=== PATIENT | female | born 1970 | race Caucasian/White ===

== ENCOUNTER 2021-03-22 14:10 | Outpatient (CLI) | payer OTHER, SELFPAY ==
--- NOTE | ~2021-03-22 | MM_ITS ---
EXAMINATION: MM screening jairon BI w jocelyne HISTORY: Screening mammogram TECHNIQUE: Craniocaudal and mediolateral oblique 3-D tomosynthesis images were obtained and synthetic 2-D images were generated. CAD analysis was submitted and interpreted. COMPARISON: No prior mammogram is available for comparison at this institution. BREAST PARENCHYMAL COMPOSITION: There are scattered areas of fibroglandular density. FINDINGS: There is no evidence of suspicious mass, calcification, or architectural distortion to sugg est malignancy in either breast. IMPRESSION: 1. No mammographic evidence of malignancy. 2. Recommend routine screening mammography in one year. BI-RADS Category 1: Negative Reviewed, dictated and finalized at location A. 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
== END 2021-03-22 14:11 | disposition home or self-care (01) ==
DX: Z12.31 Encounter for screening mammogram for malignant neoplasm of breast (principal)
CPT/HCPCS: 77063; 77067

== ENCOUNTER 2021-03-28 16:15 | Outpatient (CLI) | payer OTHER, SELFPAY ==
--- NOTE | ~2021-03-28 | XR_ITS ---
EXAMINATION: XR shoulder LT min 2V, XR shoulder RT min 2V DATE: 03/28/2021 16:49 INDICATION: Chronic bilateral shoulder pain. CCP antibody positive. TECHNIQUE: 1. AP internally and externally rotated, AP oblique externally rotated and transscapular Y views of t he left shoulder were obtained. 2. AP internally and externally rotated, AP oblique externally rotated and transscapular Y views of t he right shoulder were obtained. COMPARISON: None FINDINGS: Normal alignment at both shoulders. No fracture. Bilateral glenohumeral and acromioclavicular joint spaces are normal. No erosions. Soft tissues are unremarkable. Visualized portions of the lungs are c lear. Mild thoracic dextroscoliosis. IMPRESSION: Mild thoracic dextroscoliosis. Otherwise normal bilateral shoulder radiographs. Reviewed, dictated and finalized at location A. FIELD LABORER IMPRESSION: Mild thoracic dextroscoliosis. Otherwise normal bilateral shoulder radiographs.
--- NOTE | ~2021-03-28 | XR_ITS ---
EXAMINATION: HAND-WILFREDO ARTHRITIS 3+VIEWS DATE: 03/28/2021 16:49 INDICATION: Joint pain at the bilateral hands with positive CCP antibody TECHNIQUE: Posteroanterior, lateral, and oblique views of the left and of the right hands as well as a ballcatchers view of both hands were obtained. COMPARISON: None. FINDINGS: Left fifth digit mild mallet finger deformity along with slight radial subluxation and radial angulat ion of the distal interphalangeal joint. Relatively symmetric 3-4 mm ulnar minus variance at the bila teral wrists. Alignment is otherwise normal. No fractures. Normal joint spaces throughout the bilater al hands and wrists. No erosions to suggest an inflammatory arthritis. Soft tissues are unremarkable. IMPRESSION: 1. Mild likely post rheumatic deformity at the left fourth distal interphalangeal joint. Correlate wi th clinical history. 2. Bilateral 3-4 mm ulnar minus variance. 3. Joint spaces are normal with no erosions to suggest an inflammatory arthritis. Reviewed, dictated and finalized at location A. ATIONS AND MAINTENANCE TECHNICIAN IMPRESSION: 1. Mild likely post rheumatic deformity at the left fourth distal interphalange al joint. Correlate with clinical history. 2. Bilateral 3-4 mm ulnar minus variance. 3. Joint spaces are normal with no erosions to suggest an inflammatory arthriti s.
== END 2021-03-28 16:16 | disposition home or self-care (01) ==
LOC: ANHIMG 16:22
DX: R79.89 Other specified abnormal findings of blood chemistry (principal); G89.4 Chronic pain syndrome; M25.50 Pain in unspecified joint
CPT/HCPCS: 73030; 73130

== ENCOUNTER 2021-06-05 00:09 | Day surgery (SDC) | payer OTHER, SELFPAY ==
[2021-05-29 14:38] VITALS: BMI 33.8
[2021-06-05 12:47] VITALS: BP 149/81; PULSE 103; RESP 20; TEMP 35.6; O2SAT 94; BMI 34.2
[2021-06-05] MEDS: LACTATED RINGERS 1,000 ML 150 ML IV CONT (13:01)
--- NOTE | 2021-06-05 13:05 | WPDANESEPPF ---
Anes - Initial Pre Proc Eval Procedure: Operation Date: 06/05/21 14:00 Proposed Procedures p Screening Colonoscopy - Vasile Cota MD Date/Time: 06/05/21 13:05 Surgeon: Vasile Cota MD Pre Op Diagnosis: neoplasm screening Patient Data Age: 50 Gender: F Height: 1.78 m Weight: 108.2 kg Last Vital Signs Temp 35.6 C L 06/05/21 12:47 Pulse 103 H 06/05/21 12:47 Resp 20 06/05/21 12:47 BP 149/81 H 06/05/21 12:47 Pulse Ox 94 06/05/21 12:47 Allergies Allergy/AdvReac Type Severity Reaction Status Date / Time gabapentin Allergy Intermediate Itching Verified 06/05/21 12:46 Home Medications Medication Instructions Recorded Confirmed Type cholecalciferol (vitamin D3) 125 mcg PO DAILY 05/29/21 05/29/21 History clonazepam 0.5 mg PO DAILY 05/29/21 05/29/21 History dextroamphetamine-amphetamine 40 mg PO DAILY 05/29/21 05/29/21 History escitalopram oxalate 10 mg PO DAILY 05/29/21 05/29/21 History fluticasone propionate 50 mcg INTRANASAL DAILY 05/29/21 05/29/21 History leflunomide [Arava] 10 mg PO DAILY 05/29/21 05/29/21 History lisinopril-hydrochlorothiazide 1 tablet PO DAILY 05/29/21 05/29/21 History melatonin 10 mg PO DAILY 05/29/21 05/29/21 History methocarbamol 750 mg PO DAILY 05/29/21 05/29/21 History omeprazole 20 mg PO DAILY 05/29/21 05/29/21 History prazosin 1 mg PO HS 05/29/21 05/29/21 History ropinirole 0.5 mg PO HS 05/29/21 05/29/21 History topiramate 50 mg PO BID 05/29/21 05/29/21 History trazodone 50 mg PO DAILY 05/29/21 05/29/21 History Patient hx anesthesia problems: none Family hx anesthesia problems: none Results Review: All pre-operative results and documents have been reviewed as part of the pre-operative evaluation. [facility] Past Medical History Medical History (Updated 06/05/21 @ 13:06 by Jeovanny Lewis MD) Anxiety HTN (hypertension) PTSD (post-traumatic stress disorder) Rheumatoid arthritis Surgical History Surgical History (Updated 06/05/21 @ 13:06 by Jeovanny Lewis MD) History of removal of laparoscopic gastric banding device Hx of laparoscopic adjustable gastric banding Social History Social History Smoking status: Never smoker Alcohol intake: former Substance use: never Substance use type: marijuana Other substance usage details: medical marijuana rare use due to cost Living arrangements: with family Additional living arrangements comments: adult daughter lives with her Spiritual care concerns: No Anes - Eval Final PreProcedure Day of Procedure 06/05/21 13:05 Patient weight: obese Heart: regular rate and rhythm Lungs: clear to auscultation Airway: Mallampati scale class II Neurological: alert and oriented Last oral intake: >/= 8 hours ASA classification: III Emergent: no Anesthetic plan: proceed Anesthesia type and monitoring: general GIVS and standard monitoring Results Review: All pre-operative results and documents have been reviewed as part of the pre-operative evaluation. Informed Consent: The patient's anesthetic plan and its attendant risks and benefits were discussed with the patient/family/POA. Questions were solicited and answers provided to the satisfaction of the patient/family/POA.
--- NOTE | 2021-06-05 13:20 | PM.HPGS ---
History of Present Illness History of Present Illness Consent: Risks, benefits, and alternatives have been discussed and questions answered. Patient agrees to proceed with procedure. Chief complaint: neoplasm screening Narrative: Elizabeth Amezcua is a 50 year old female here for first screening colonoscopy, had diverticulitis few months ago. Review of Systems Constitutional: Constitutional: Denies headache(s) and Denies weakness Eyes: Eyes: Denies blurry vision ENT: Reports Normal hearing present, Denies headache(s) and Denies neck pain Cardiovascular: Cardiovascular: Denies chest pain and Denies dyspnea Respiratory: Respiratory: Denies dyspnea Gastrointestinal: Gastrointestinal: Reports no additional gastrointestinal complaints Genitourinary: Genitourinary: Denies dysuria Musculoskeletal: Musculoskeletal: Denies neck pain Integumentary/Breasts: Skin/Breast: Denies dry skin Neurologic: Reports Normal hearing present, Denies headache(s) and Denies weakness Psychiatric: Psychiatric: Denies anxiety Endocrine: Endocrine: Denies change in body appearance Hematologic/Lymphatic: Hematologic/Lymphatic: Denies easy bleeding Allergic/Immunologic: Allergic/Immunologic: Denies urticaria PMFSH Past Medical History Medical History (Updated 06/05/21 @ 13:20 by Vasile Cota MD) Anxiety Colon cancer screening HTN (hypertension) PTSD (post-traumatic stress disorder) Rheumatoid arthritis Surgical History Surgical History (Updated 06/05/21 @ 13:06 by Jeovanny Lewis MD) History of removal of laparoscopic gastric banding device Hx of laparoscopic adjustable gastric banding Social History Social History Smoking status: Never smoker Alcohol intake: former Substance use: never Substance use type: marijuana Other substance usage details: medical marijuana rare use due to cost Living arrangements: with family Additional living arrangements comments: adult daughter lives with her Spiritual care concerns: No Meds Home Medications and Allergies Home Medications Medication Instructions Recorded Confirmed Type cholecalciferol (vitamin D3) 125 mcg PO DAILY 05/29/21 05/29/21 History clonazepam 0.5 mg PO DAILY 05/29/21 05/29/21 History dextroamphetamine-amphetamine 40 mg PO DAILY 05/29/21 05/29/21 History escitalopram oxalate 10 mg PO DAILY 05/29/21 05/29/21 History fluticasone propionate 50 mcg INTRANASAL DAILY 05/29/21 05/29/21 History leflunomide [Arava] 10 mg PO DAILY 05/29/21 05/29/21 History lisinopril-hydrochlorothiazide 1 tablet PO DAILY 05/29/21 05/29/21 History melatonin 10 mg PO DAILY 05/29/21 05/29/21 History methocarbamol 750 mg PO DAILY 05/29/21 05/29/21 History omeprazole 20 mg PO DAILY 05/29/21 05/29/21 History prazosin 1 mg PO HS 05/29/21 05/29/21 History ropinirole 0.5 mg PO HS 05/29/21 05/29/21 History topiramate 50 mg PO BID 05/29/21 05/29/21 History trazodone 50 mg PO DAILY 05/29/21 05/29/21 History Allergies Allergy/AdvReac Type Severity Reaction Status Date / Time gabapentin Allergy Intermediate Itching Verified 06/05/21 12:46 Vital Signs Vital Signs - 24 hr 06/05/21 12:47 Temperature 96.1 F L Pulse Rate 103 H Respiratory Rate 20 Blood Pressure 149/81 H Pulse Oximetry 94 Exam Const: General: comfortable and no acute distress HENMT: General nose exam: Normal nares present Eyes: General: appearance normal, both eyes and all related structures Neck: Neck: no JVD Resp: Auscultation: clear to auscultation bilaterally Cardio: Rate: regular rate Rhythm: regular rhythm GI: Inspection: non-distended GI Palp: Yes Soft to palpation Skin: General skin exam: normal color Neuro: General: gait normal Speech: normal speech Extrem: General: normal to inspection Psych: Mental Status: mental status grossly normal Assessment and Plan Assessment and plan (1) Colon cancer screening:
[2021-06-05 13:43] VITALS: BP 113/68; PULSE 85; RESP 32; O2SAT 96
[2021-06-05 13:53] VITALS: BP 118/69; PULSE 79; RESP 22; O2SAT 98
[2021-06-05 14:03] VITALS: BP 105/74; PULSE 66; RESP 20; O2SAT 100
== END 2021-06-05 14:11 | disposition home or self-care (01) ==
PROVIDERS: Visit Provider Internal Medicine Gastroenterology
PROC: 0DJD8ZZ Inspection of Lower Intestinal Tract, Via Natural or Artificial Opening Endoscopic (ICD-10-PCS; CPT 45378; principal; 2021-06-05 14:00)
DX: Z12.11 Encounter for screening for malignant neoplasm of colon (principal); K57.30 Diverticulosis of large intestine without perforation or abscess without bleeding; K64.8 Other hemorrhoids; I10 Essential (primary) hypertension; M06.9 Rheumatoid arthritis, unspecified; F41.9 Anxiety disorder, unspecified; F43.10 Post-traumatic stress disorder, unspecified; Z98.84 Bariatric surgery status; F12.90 Cannabis use, unspecified, uncomplicated; E66.9 Obesity, unspecified; Z68.34 Body mass index [BMI] 34.0-34.9, adult
CPT/HCPCS: 45378; J2704; J7120

== ENCOUNTER 2022-07-23 12:30 | Outpatient (RCR) | payer OTHER, SELFPAY ==
--- NOTE | 2022-05-15 15:18 | OTOPEVAL1 ---
Assessment and note entered by Lukasz Mackenzie, JASMINER/Red, CHT Evaluation Information Assessment Status Evaluation Diagnosis Bilateral hand numbness Onset a couple years Subjective Information Patient reports bilateral hand/UE spasms - happens with prolonged writing, prolonged gripping (like holding onto the steering wheel), when cleaning - wiping surfaces or putting pressure through her palms. She also reports hand/UE weakness - she purchased an electric can instructional paraprofessional because she could not do her manual one anymore. Reports intermittent numbness - difficulty pin pointing which fingers have paresthesias. Reported Pain Level Pain Score Additional Pain Score Comments Intermittent 10/10 pains in B UEs. Related to muscle spasms with hand use. Pain tends to calm down quickly. Has a constant 3-4/10 pain in the right radial wrist. With gripping the dynamometer, the patient experienced a left forearm muscle spasm that brought her to tears. Assessment OT Clinical Summary Patient referred to outpatient hand therapy with bilateral hand numbness and weakness. Patient reporting a functional decline with ADLs due to persistent pain and muscle spasms with hand use. Evaluation today revealing gross UE weakness, positive Tinel's of the median nerve in the left carpal tunnel, and tendonitis of the right thumb extensors (de Quervain's). Intermittent muscle spasms evident and appear to be due to her diagnosis of fibromyalgia. Skilled OT indicated for modified ADL techniques to compensate for chronic pain, splinting, thermal modalities, manual therapy, ROM/stretching, and gentle strengthening to facilitate optimal functional UE use for ADLs. Plan of Care Interventions Therapeutic Exercise,Manual Therapy,Therapeutic Activities,Hot Pack/Cold Pack,Check Out for Orthotic/Pr,Ultrasound,Paraffin OT Services Indicated Yes Treatment Frequency and 0-2x/week for 5 weeks. Patient out of town x2 Duration weeks and will limit therapy attendance. Will be seeing 2x next week, 1x the following week, then followed by 2 weeks off. Will re-assess Jun 18. These treatments will address the objective and functional deficits as defined above. The patient will be advanced safely and appropriately in order for the patient to progress towards his/her prior level of function. Additional exercises will be introduced and as well as a comprehensive home exercise program upon discharge, if needed, ?to ensure carryover o
--- NOTE | 2022-05-15 16:05 | PTOPEVAL1 ---
Assessment and note entered by Alexa Underwood, PT Evaluation Information Assessment Status Evaluation Diagnosis fibromyalgia, Ehler Danlos, LBP Onset past year Subjective Information going to pain management , working on meds-- taking baclofen, tizanidine- to get new script for ; had MRI recently of spine, ruled out MS; going to have trigger point injections; She wants tight muscles in back to be worked out and loosened up; had PT over year ago for neck, had dry needling, traction, neck stretches, heat, massage helped; L leg is weaker and heavier--problems lifting it into the car; has been like that awhile; Reported Pain Level Pain Score Self Report generalized pain Pain Score Self Report Additional Pain Score Comments pain range of 4-10/10 in the past week; multiple areas of pain, neck, mid back, low back, legs, arms; cramps, ache, sharp, crawl out of skin; sometimes stretch back with sitting and lean forward or stretch out flat on bed; reported activity tolerance with home tasks 5-10 min; sleep OK with meds; do not do any exercises at home--movement hurts have B knee support braces, not on today, but has ordered her another set, need to product picker have a home TENS unit, but not using it, does not know how to --instructed to find it and bring it in for education Additional Pain Score Comments Assessment PT Clinical Summary Elizabeth has the diagnosis of fibromyalgia, low back pain, Ehler Danlos syndrome. She also has orders for OT, addressing her arms and wrists. She reports generalized, chronic pain and decreased activity level with home tasks, transfers in/out car difficulty and using a motorized cart or scooter at stores. She does not do any exercises at home, because activity increases her pain. With the evaluation, she has decreased strength of legs, L weaker than R; with transfer supine/sit uses her UE's to move L LE; sit/stand requires B UE use; 2 minute walking test distance of 140'; 5 reps sit/stand time is 43 seconds; she has decreased L knee flexion ROM. Skilled PT services are indicated for therapeutic
--- NOTE | 2022-05-28 13:38 | PCPTNOTE ---
pt called and canceled today's appt due to someone in her home has covid.
--- NOTE | 2022-06-21 11:29 | OTOPPROG ---
Assessment and note entered by Lukasz Mackenzie, MARK/Red, CHT Evaluation Information Assessment Status Progress Diagnosis Bilateral hand numbness Onset a couple years Subjective Information Patient has only been able to attend 1 OT treatment session due to being out of town. We have only been able to address wrist pain via splinting. Patient reports continued bilateral hand/UE spasms - no change in these symptoms. Reports she has been wearing the right wrist/thumb immobilizer at night and has been experiencing reduced pain in the wrist/thumb. She continues to report tingling with prolonged gripping, when holding a steering wheel, for example. Reports pain with cleaning - wiping surfaces or putting pressure through her palms. Assessment OT Clinical Summary Patient referred to outpatient hand therapy with bilateral hand numbness and weakness. Patient reporting a functional decline with ADLs due to persistent pain and muscle spasms with hand use. Progress report/assessment today revealing continued gross UE weakness, positive Tinel's of the median nerve in the left carpal tunnel, and tendonitis of the right thumb extensors (de Quervain's). Intermittent muscle spasms evident and appear to be due to her diagnosis of fibromyalgia. 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 Skilled OT indicated for modified ADL techniques to compensate for chronic pain, splinting, thermal modalities, manual therapy, ROM/stretching, and gentle strengthening to facilitate optimal functional UE use for ADLs. Plan of Care Interventions Therapeutic Exercise,Manual Therapy,Therapeutic Activities,Hot Pack/Cold Pack,Check Out for Orthotic/Pr,Ultrasound,Paraffin OT Services Indicated Yes Treatment Frequency and 1-2x/week for 4 weeks Duration These treatments will address the objective and functional deficits as defined above. The patient will be advanced safely and appropriately in order for the patient to progress towards his/her prior level of function. Additional exercises will be introduced and as well as a comprehensive home exercise program upon discharge, if needed, ?to ensure carryover of functional gains achieved in the clinic. This treatment plan has been reviewed and agreement upon by the patient.
--- NOTE | 2022-06-26 10:26 | PCOTNOTE ---
Patient called and cancelled OT appt today due to being sick.
--- NOTE | 2022-06-26 11:13 | PCPTNOTE ---
pt called and canceled today's reeval appt;
--- NOTE | 2022-07-12 08:48 | PTOPPROG ---
Assessment and note entered by Alexa Underwood, PT Evaluation Information Assessment Status Progress Diagnosis fibromyalgia, Maxime Mercados, LBP Onset past year Subjective Information Elizabeth reports: had trigger point injections into R shoulder blade, L shoulder areas; have been using the home stim unit and know how to use it; use a stool at home for help with cooking; standing tolerance with cooking 5 minutes; have not had any falls, but have loss of balance- fell into the wall or a chair, not hit the ground; neurologist is changing meds and balance is little worse; pain range of 7-9 /10 in the past week of generalized pain ; overall, multiple areas of pain educated on use and demo of theracane massage tool for self massage/trigger points; reinforced sitting exercises, activity as tolerated; Assessment PT Clinical Summary Elizabeth has received 5 PT sessions. During today's reevaluation, she spent a lot of time dwelling on her multiple areas of pain and her physical limitations. She did not feel that PT has made much difference and she was not satisfied with some of the treatment sessions with us. Reinforced with her the importance of moving, activity as tolerated. Self pain management with home stim unit, self massage with Theracane massage tool, position changes. Compared to the initial evaluation: pain rating is worse at the low rating from 4 to 7/10 and high rating is slight less from 10 to 9/10; reported activity tolerance was 5-10 min, now 5 min; strength increased slightly with R and L LE sitting exercises; 5 reps sit to stand time improved from 43 to 29 seconds, but still requires use of UE to transfer sit/stand, supine/sit and in/out car. She states she has not had any falls, but has lost her balance, landing into a chair or into the wall. Elizabeth does not want to schedule any additional PT at this time, but wants to HOLD PT. Discussed with her that we can hold for 30 days, then if she does not return, she will be
--- NOTE | 2022-07-19 14:07 | PCOTNOTE ---
Patient called & cancelled scheduled appointment this date due to being sick.
--- NOTE | 2022-07-23 14:25 | OTOPPROG ---
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 She has trialed the silver ring splints for a few days. 3 of the 4 have a good fit and the 4th we are going to exchange for a smaller size due to it being too loose. Reports the thumbs fit well and reports these help with the stability of her thumbs. Assessment OT Clinical Summary Patient referred to outpatient hand therapy with bilateral hand numbness and weakness. Patient reporting a functional decline with ADLs due to persistent pain and muscle spasms with hand use. Therapy has been utilizing splinting to help with pain reduction to provide support to her wrist and fingers. With the splints on her fingers she is able to pinch the pinch gauge at least 1-2 lbs. compared to without the support of the splints the pinch gauge does not budge. She is compliant with all materials. Plan - One of her ring splints needs to be exchanged for a smaller size. Plan to see her for another follow up visit once the splint comes in. Plan to leave her care plan open x5 weeks. Plan of Care Interventions Check Out for Orthotic/Pr OT Services Indicated Yes Treatment Frequency and 0-1x/week for 5 weeks Duration These treatments will address the objective and functional deficits as defined above. The patient will be advanced safely and appropriately in order for the patient to progress towards his/her prior level of function. Additional exercises will be introduced and as well as a comprehensive home exercise program upon discharge, if needed, ?to ensure carryover of functional gains achieved in the clinic. This treatment plan has been reviewed and agreement upon by the patient.
--- NOTE | 2022-08-14 09:56 | PCPTNOTE ---
PHYSICAL THERAPY DISCHARGE 08-14-22 Attending Provider: Katty Felix MD, PhD Patient:Elizabeth Amezcua Date of :1970 Ms. Amezcua has not returned for any further treatments since the reevaluation on 07-12-22, therefore she will be discharged at this time. Refer to above progress report for her status at the last session. Thank you for referring this patient to [facility].
== END 2022-08-07 11:44 | disposition home or self-care (01) ==
LOC: ANHOT 12:30
DX: M54.42 Lumbago with sciatica, left side (principal); M54.41 Lumbago with sciatica, right side; G89.29 Other chronic pain; Q79.60 Ehlers-Danlos syndrome, unspecified
CPT/HCPCS: 97018; 97110; 97113; 97140; 97162; 97167; 97530; 97763; L3806; L3933

== ENCOUNTER 2022-09-05 13:19 | Outpatient (RCR) | payer OTHER, SELFPAY ==
--- NOTE | 2022-09-05 14:09 | OTOPDC ---
Assessment and note entered by MARK Elizalde/Red, CHT Evaluation Information Assessment Status Discharge Subjective Information Patient reports good compliance with wearing splints. Reports these have helped with her pain and they help with providing support. She returns today for last fitting of a splint that needed to be exchanged for a different size. All splints now have a good fit. Assessment OT Clinical Summary Patient referred to outpatient hand therapy with bilateral hand numbness and weakness. Patient reporting a functional decline with ADLs due to persistent pain and muscle spasms with hand use. Therapy has been utilizing splinting to help with pain reduction to provide support to her wrist and fingers. With the splints on her fingers she is able to pinch the pinch gauge at least 1-2 lbs. compared to without the support of the splints the pinch gauge does not budge. At this time she is independent with splints and with gentle launch engineer/ pinch strengthening HEP. No further skilled OT indicated at this time. Plan of Care OT Services Indicated No
== END 2022-09-05 15:01 | disposition home or self-care (01) ==
LOC: ANHOT 13:19
PROVIDERS: Visit Provider Physical Medicine & Rehabilitation
DX: R29.898 Other symptoms and signs involving the musculoskeletal system (principal)
CPT/HCPCS: 97763

== ENCOUNTER 2023-01-25 15:04 | Outpatient (CLI) | payer OTHER, SELFPAY ==
--- NOTE | ~2023-01-25 | MM_ITS ---
EXAMINATION: MM screening jairon BI w jocelyne HISTORY: Screening TECHNIQUE: Craniocaudal and mediolateral oblique 3-D tomosynthesis images were obtained and synthetic 2-D images were generated. CAD analysis was submitted and interpreted. COMPARISON: 03/22/2021 BREAST PARENCHYMAL COMPOSITION: There are scattered areas of fibroglandular density. FINDINGS: There is no evidence of suspicious mass, calcification, or architectural distortion to sugg est malignancy in either breast. There has been no suspicious interval change. IMPRESSION: 1. No mammographic evidence of malignancy. 2. Recommend routine screening mammography in one year. BI-RADS Category 1: Negative Reviewed, dictated and finalized at location A.
== END 2023-01-25 15:05 | disposition home or self-care (01) ==
LOC: ANHIMG 15:07
PROVIDERS: Visit Provider Obstetrics & Gynecology
DX: Z12.31 Encounter for screening mammogram for malignant neoplasm of breast (principal)
CPT/HCPCS: 77063; 77067

== ENCOUNTER 2023-05-23 10:07 | Outpatient (CLI) | payer OTHER, SELFPAY | END 2023-05-23 10:08 | disposition home or self-care (01) | LOC: ANHAUDIO 10:08 | PROVIDERS: Visit Provider Nurse Practitioner Family | DX: H91.90 Unspecified hearing loss, unspecified ear (principal) | CPT/HCPCS: 92552; 92556; 92567 ==

== ENCOUNTER 2024-02-12 14:26 | Outpatient (CLI) | payer OTHER, SELFPAY ==
--- NOTE | ~2024-02-12 | MM_ITS ---
EXAMINATION: MM screening [facility] BI w jocelyne HISTORY: Screening TECHNIQUE: Craniocaudal and mediolateral oblique 3-D tomosynthesis images were obtained and synthetic 2-D images were generated. CAD analysis was submitted and interpreted. COMPARISON: Comparison to multiple prior studies sequentially, with oldest reviewed study dated 03/06. BREAST PARENCHYMAL COMPOSITION: Not Dense. The breasts are almost entirely fatty. FINDINGS: There is no evidence of suspicious mass, calcification, or architectural distortion to sugg est malignancy in either breast. There has been no suspicious interval change. IMPRESSION: 1. No mammographic evidence of malignancy. 2. Recommend routine screening mammography in one year. BI-RADS Category 1: Negative Reviewed, dictated and finalized at location B.
== END 2024-02-12 14:27 | disposition home or self-care (01) ==
LOC: ANHIMG 14:31
PROVIDERS: PCP Family Medicine; Visit Provider Obstetrics & Gynecology
DX: Z12.31 Encounter for screening mammogram for malignant neoplasm of breast (principal)
CPT/HCPCS: 77063; 77067

== ENCOUNTER 2025-03-26 14:28 | Outpatient (CLI) | payer OTHER, SELFPAY ==
--- NOTE | ~2025-03-26 | MM_ITS ---
EXAMINATION: MM screening jairon BI w jocelyne HISTORY: Screening TECHNIQUE: Craniocaudal and mediolateral oblique 3-D tomosynthesis images were obtained and synthetic 2-D images were generated. CAD analysis was submitted and interpreted. COMPARISON: Comparison to multiple prior studies sequentially, with oldest reviewed study dated 03/22/2021. BREAST PARENCHYMAL COMPOSITION: Not dense: There are scattered areas of fibroglandular density. FINDINGS: There is developing subareolar asymmetry of the right breast. The left breast is stable without evidence for malignancy. IMPRESSION: 1. Developing right breast asymmetry. 2. Additional mammographic views and possible breast ultrasound are recommended. BI-RADS Category 0: Incomplete: Needs additional imaging evaluation. Reviewed, dictated and finalized at location O. OR DIRECTOR FINANCE IMPRESSION: 1. Developing right breast asymmetry. 2. Additional mammographic views and possible breast ultrasound are recommended . BI-RADS Category 0: Incomplete: Needs additional imaging evaluation.
--- OUTSIDE RECORDS SUMMARY | 2025-03-26 14:31 | XMS_ITS | Clinical Summary ---
Author Organization [facility] Address Formerly [facility] [place] [address] Care Team Providers Care Head Counselor Name Role Phone Nevaeh Morgan MD Primary Care P rovider Social History Tobacco Use Types Packs/Day Years Used Date Smoking Tobacco: Never Assessed Comments Unknown Sex and Gender Information Value Date Recorded Sex Assigned at Not on file Legal Sex Female 10:25 PM PAINTER AIRBRUSH Gender Identity Not on file Sexual Orientation Not on file Last Filed Vital Signs Vital Sign Reading Time Taken Comments Blood Pressure 156/100 06/21/2015 2:16 PM PAINTER AIRBRUSH Pulse 113 06/21/2015 2:16 PM PAINTER AIRBRUSH Temperature - - Respiratory Rate - - Oxygen Saturation - - Inhaled Oxygen Concentration - - Weight 99.8 kg (220 lb) 05/31/2015 3:55 PM PAINTER AIRBRUSH Height 180.3 cm (5' 11) 05/31/2015 3:55 PM PAINTER AIRBRUSH Body Mass Index 30.68 05/31/2015 3:55 PM PAINTER AIRBRUSH Plan of Treatment Health Maintenance Due Date Last Done Comments Cervical Cancer Screening Pa p Smear (Age 30 to 64) Every 3 Years 1971 Colorectal Cancer Screening Colonoscopy (10 Years) 1971 Annual Physical 07/03/1974 Hepatitis C 07/03/1989 DTaP, Tdap and Td Vaccines ( 1 - Tdap) 07/03/1990 Hepatitis B Vaccines (1 of 3 - 19+ 3-dose series) 07/03/1990 Cervical Cancer Screening Pa p with HPV Testing (Age 30 to 64) Every 5 Years 07/03/2001 Cervical Cancer Screening with HPV 07/03/2001 Mammogram Screening 2011 Pneumococcal Vaccine: 50+ Ye ars (1 of 1 - PCV) 07/03/2021 Zoster Vaccines (1 of 2) 07/03/2021 COVID-19 Vaccine (1 - 2024-2 6 season) 2025 Influenza Adult (#1) 2025 Hepatitis A Vaccines Aged Out No long er eligible based on patient's age to complete this topic Meningococcal B Vaccine Aged Out No l onger eligible based on patient's age to complete this topic Meningococcal Vaccine Aged Out No david orion eligible based on patient's age to complete this topic RSV Immunizations Under 20 Months Aged Out No longer eligible based on patient's age to complete this topic Insurance MEDICAID Care Teams Head Counselor Relationship Specialty Start Date End Date Nevaeh Morgan MD [address] [place] [address] PCP - General FAMILY PRACTICE 12/15/18
--- OUTSIDE RECORDS SUMMARY | 2025-03-26 14:31 | XMS_ITS | Encounter Summary ---
Author Organization [facility] Address [facility] [place] [address] Care Team Providers Care Inspector Name Role Phone Nevaeh Morgan MD Primary Care P rovider Encounter Details Date Type Department Care Team (Late st Contact Info) Description 07/20/2017 Abstract [facility] CONVERSION [address] [place] [address] , Generic ConversionMD Social History Tobacco Use Types Packs/Day Years Used Date Smoking Tobacco: Never Assessed Comments Unknown Sex and Gender Information Value Date Recorded Sex Assigned at Not on file Legal Sex Female 10:25 PM OPERATIONS ASST Gender Identity Not on file Sexual Orientation Not on file documented as of this encounter Plan of Treatment Not on file documented as of this encounter Visit Diagnoses Not on filedocumented in this encounter Care Teams Inspector Relationship Specialty Start Date End Date Nevaeh Morgan MD [address] [place] [address] PCP - General FAMILY PRACTICE 12/15/18 documented as of this encounter
--- OUTSIDE RECORDS SUMMARY | 2025-03-26 14:31 | XMS_ITS | Encounter Summary ---
Author Organization [facility] Healthcare Address [address] [place] [address] Care Team Providers Care Broker In Charge Name Role Phone Nina Dominguez MD Primary Care Provider + Emilee Goldstein Primary Care Provider [phone] iNna Dominguez MD Primary Care Provider + Emilee Goldstein Unavailable [phone] Kendra Kumar RN Unavailable [phone] Unknown, Notinfile Primary Care Provider Unavail able Jay Lee MD Primary Care Provider [phone] Encounter Details Date Type Department Care Team (Late st Contact Info) Description 12/08/2021 Telephone [facility] [address] [facility] [address] [place] [address] Katty Felix MD PhD [address] [place] [address] Social History Tobacco Use Types Packs/Day Years Used Date Smoking Tobacco: Never Smokeless Tobacco: Never AUDIT-C Answer Date Recorded Q1: How often do you have a drink containing alc ohol? Never 10/05/2021 Average Number of Drinks Not on file 022 Frequency of Binge Drinking Not on file 06/2021 Comments No Sex and Gender Information Value Date Recorded Sex Assigned at Not on file Legal Sex Female 12:21 AM COAL LOADER Gender Identity Female 03/20/2023 8:17 AM COAL LOADER Sexual Orientation Straight 03/20/2023 8: 17 AM COAL LOADER documented as of this encounter Plan of Treatment Not on file documented as of this encounter Goals Goal Patient Goal Type Associated Problems Recent Progress Patient-Stated? Author CCM Chronic Pain Care Plan Chronic Care Management Worsening( 2:48 PM CDT) Nithya Blancas, RN Note: Problem: Chronic Pain Goals: 1. Minimize further functional decline 2. Maximize quality of life 3. Control pain Strategies: - Activity/exercise program recommendation - Conservative stepwise pain medicine strategy with multi-disciplinary approach - Recommend healthy lifestyle strategies and compensatory methods as needed documented as of this encounter Visit Diagnoses Not on filedocumented in this encounter Additional Health Concerns Infection Onset Date Last Indicated Resolved Time COVID: Suspected 03/19/2023 03/19/2023 03/20/2023 12:21 AM COAL LOADER COVID: Suspected 08/16/2024 08/16/2024 08/16/2024 3:03 AM CDT COVID: Suspected 11/24/2024 11/24/2024 11/24/2024 1:16 PM CDT COVID19 11/24/2024 11/24/2024 12/06/2024 7:26 PM CDT COVID: Recovered Comment:Added based on recent COVID infection. 12/06/2024 12/09/2024 03/06/2025 7:27 PM C DT documented as of this encounter Care Teams Broker In Charge Relationship Specialty Start Date End Date Nina Dominguez MD [address] [place] [address] PCP - General Family Medicine 03/27/21 09/24/22 Emilee Goldstein PA [address] [place] [address] PCP - General 09/25/22 03/17/23 Nina Dominguez MD [address] [facility] [address] [place] [address] PCP - General Family Medicine 03/18/23 02/06/24 Unknown, Notinfile PCP - General 02/07/24 02/19/24 Jay Lee MD [address] [facility] [place] [address] PCP - General Family Medicine 02/20/24 Emilee Goldstein PA [address] [place] [address] 03/18/23 Kendra Kumar, RN [address] [facility] [address] [place] [address] [facility] Outpatient Unarmed Security Officer 03/26/23 04/23/23 documented as of this encounter
--- OUTSIDE RECORDS SUMMARY | 2025-03-26 14:31 | XMS_ITS | Encounter Summary ---
Author Organization [facility] Healthcare Address [address] [facility] [place] [address] Care Team Providers Care Taffy Candy Maker Name Role Phone Nina Dominguez MD Primary Care Provider + Emilee Goldstein Unavailable Unknown, Notinfile Primary Care Provider Unavail able Jay Lee MD Primary Care Provider [phone] Reason for Visit * Reason Onset Date Comments Med Refill 06/13/2023 Encounter Details Date Type Department Care Team (Late st Contact Info) Description 06/13/2023 Telephone [facility] [address] [facility] [address] [place] [address] Katty Felix MD PhD [address] [place] [address] Med Refill Social History Tobacco Use Types Packs/Day Years Used Date Smoking Tobacco: Never Smokeless Tobacco: Never [facility] Utilities Answer Date Recorded In the past 12 months has [employer], gas, oil, or water company threatened to shut off services in your home? No 03/29/2023 Social Connection and Isolation Panel Answer Date Recorded In a typical week, how many times do you talk on the phone with family, friends, or neighbors? Patient declined 03/29/2023 How often do you get togethe r with friends or relatives? Patient declined 03/29/2023 How often do you attend roman catholic or jehovah's witness serv ices? Patient declined 03/29/2023 Do you belong to any clubs o r organizations such as roman catholic groups, unions, fraternal or athletic groups, or school groups? Patient declined 03/29/2023 How often do you attend meet ings of the clubs or organizations you belong to? Patient declined 03/29/2023 Are you , , di vorced, , never , or living with a partner? 03/29/2023 AUDIT-C Answer Date Recorded Q1: How often do you have a drink containing alcohol? Never 05/16/2023 Q2: How many drinks containi ng alcohol do you have on a typical day when you are drinking? Patient does not drink Q3: How often do you have si x or more drinks on one occasion? Never 05/16/2023 Overall Financial Resource Strain (CARDIA) Answe r Date Recorded How hard is it for you to pa y for the very basics like food, housing, medical care, and heating? Hard 03/29/2023 Hunger Vital Sign Answer Date Recorded Within the past 12 months, y ou worried that your food would run out before you got the money to buy more. Sometimes true Within the past 12 months, t he food you bought just didn't last and you didn't have money to get more. Sometimes true 03/2024 PRAPARE - Transportation Answer Date Re corded In the past 12 months, has l ack of transportation kept you from medical appointments or from getting medications? No 03/07 In the past 12 months, has l ack of transportation kept you from meetings, work, or from getting things needed for daily living? No 03/29/2023 Housing Stability Vital Sign Answer Gabriel e Recorded In the last 12 months, was t here a time when you were not able to pay the mortgage or rent on time? No 03/29/2023 In the last 12 months, how many places have you lived? 1 03/29/2023 In the last 12 months, was t here a time when you did not have a steady place to sleep or slept in a snf (including now)? No 03/29/2023 Personal Safety Answer Date Recorded Getting School Help Needed Denies 04/15 Comments No Sex and Gender Information Value Date Recorded Sex Assigned at Not on file Legal Sex Female 12:21 AM MATE SHIP Gender Identity Female 03/20/2023 8:17 AM MATE SHIP Sexual Orientation Straight 03/20/2023 8: 17 AM MATE SHIP documented as of this encounter Plan of [...] Date Last Indicated Resolved Time COVID: Suspected 08/16/2024 08/16/2024 08/16/2024 3:03 AM CDT COVID: Suspected 11/24/2024 11/24/2024 11/24/2024 1:16 PM CDT COVID19 11/24/2024 11/24/2024 12/06/2024 7:26 PM CDT COVID: Recovered Comment:Added based on recent COVID infection. 12/06/2024 12/09/2024 03/06/2025 7:27 PM C DT documented as of this encounter Care Teams Taffy Candy Maker Relationship Specialty Start Date End Date Nina Dominguez MD [address] [place] [address] [place] [address] PCP - General Family Medicine 03/18/23 02/06/24 Unknown, Notinfile PCP - General 02/07/24 02/19/24 Jay Lee MD [address] [place] [address] DEPT [place] [address] PCP - General Family Medicine 02/20/24 Emilee Goldstein PA [address] [place] [address] 03/18/23 documented as of this encounter
--- OUTSIDE RECORDS SUMMARY | 2025-03-26 14:31 | XMS_ITS | Encounter Summary ---
Author Organization [facility] Address [address] [place] [address] Phone Care Team Providers Care Local Sales Associate Name Role Phone Emilee Goldstein Unavailable [phone] Jay Lee MD Primary Care Provider [phone] Reason for Visit * Reason Onset Date Comments Prior Auth 03/25/2025 Trulance 3MG tab lets Encounter Details Date Type Department Care Team (Late st Contact Info) Description 03/25/2025 Telephone [facility] [address] [facility] [address] [place] [address] [place] [id number] Crissy Sheets Prior Auth (Trulance 3MG tablets) Social History Tobacco Use Types Packs/Day Years Used Date Smoking Tobacco: Never Smokeless Tobacco: Never Alcohol Use Standard Drinks/Week Comments Never 0 (1 standard drink = 0.6 oz pur e alcohol) [facility] Utilities Answer Date Recorded In the past 12 months has e electric, gas, oil, or water company threatened to shut off services in your home? No 11/25/2024 Social Connection and Isolation Panel Answer Date Recorded In a typical week, how many times do you talk on the phone with family, friends, or neighbors? Three times a week 11/25/2024 How often do you get togethe r with friends or relatives? Three times a week 11/25/2024 How often do you attend chur ch or restorationism services? Never 11/25/2024 Do you belong to any clubs o r organizations such as uatsdin groups, unions, fraternal or athletic groups, or school groups? No 11/25/2024 How often do you attend meet ings of the clubs or organizations you belong to? Never 11/25/2024 Are you , , di vorced, , never , or living with a partner? 11/25/2024 Overall Financial Resource Strain (CARDIA) Answe r Date Recorded How hard is it for you to pa y for the very basics like food, housing, medical care, and heating? Somewhat hard 11/25/2024 PRAPARE - Transportation Answer Date Re corded In the past 12 months, has l ack of transportation kept you from medical appointments or from getting medications? No 11/04 In the past 12 months, has l ack of transportation kept you from meetings, work, or from getting things needed for daily living? No 11/25/2024 Housing Stability Vital Sign Answer Gabriel e [...] place to sleep or slept in a retirement (including now)? No 03/29/2023 Housing Stability Vital Sign Answer Gabriel e Recorded In the last 12 months, was t here a time when you were not able to pay the mortgage or rent on time? No 11/25/2024 In the past 12 months, how m any times have you moved where you were living? 0 11/25/2024 At any time in the past 12 m [facility], were you homeless or living in a retirement (including now)? No 11/25/2024 AUDIT-C Answer Date Recorded Q1: How often do you have a drink containing alcohol? Never 02/24/2025 Q2: How many drinks containi ng alcohol do you have on a typical day when you are drinking? Patient does not drink Q3: How often do you have si x or more drinks on one occasion? Never 02/24/2025 Hunger Vital Sign Answer Date Recorded Within the past 12 months, y ou worried that your food would run out before you got the money to buy more. Sometimes true Within the past 12 months, t he food you bought just didn't last and you didn't have money to get more. Sometimes true Personal Safety Answer Date Recorded Have you ever been in or are you currently in a harmful physical or emotional relationship or is someone making you feel afraid or unsafe? Denies 11/24/2024 Comments No Sex and Gender Information Value Date Recorded Sex Assigned at Not on file Legal Sex Female 12:21 AM VETERINARY TECHNICIAN Gender Identity Female 03/20/2023 8:17 AM VETERINARY TECHNICIAN Sexual Orientation Straight 03/20/2023 8: 17 AM VETERINARY TECHNICIAN documented as of this encounter Miscellaneous Notes * Telephone Encounter - Jack Vaz RMA - 03/25/2025 9:09 AM CST Potter:[id number] PBM: [facility] Drug:Trulance 3MG tablets Status: Approved Pa Qty: 30 tabs per 30 days Valid: 03/25/25 to 03/25/26 RINARY TECHNICIAN RINARY TECHNICIAN * Telephone Encounter - Crissy Sheets - 03/25/2025 9:02 AM VETERINARY TECHNICIAN Please attain PA. Medication: Trulance 3mg Directions: Take 1 tablet by mouth daily Days/ Quantity: New Start/ Continuation started on: Continuation 10/2022 Diagnosis: IBS-C Tried and failed medications: Docusate, Miralax, RINARY TECHNICIAN documented in this encounter Plan of Treatment Not on [...] on filedocumented in this encounter Care Teams Local Sales Associate Relationship Specialty Start Date End Date Jay Lee MD [address] [place] [address] [place] [address] PCP - General Family Medicine 02/20/24 Emilee Goldstein PA [address] [place] [address] [place] [address] 03/18/23 documented as of this encounter
--- OUTSIDE RECORDS SUMMARY | 2025-03-26 14:31 | XMS_ITS | Clinical Summary ---
Author Organization [facility] Address [address] [place] [address] Care Team Providers Care Type Proof Reproducer Name Role Phone Emilee Goldstein Unavailable [phone] Jay Lee MD Primary Care Provider [phone] Allergies Active Allergy Reactions Criticality Noted Date Comments Gabapentin Itching Low 03/19/2023 Latex Rash Medium 2023 Leflunomide Other (See comments) Low 03/21/2023 Had bad diverticulitis resistant Metformin Nausea only Low 08/29/2020 Bloating, loose stool Pregabalin Swelling Medium 11/24/2024 Knees and ankles Medications dextroamphetamine -amphetamine (ADDERALL) 20 mg tabletIndications :Attention-Defici t Hyperactivity Disorder Take 2 tablets (40 mg total) by mouth every morning 0 Active melatonin 10 mg tabletIndications :Insomnia Take 1 tablet (10 mg total) by mouth nightly Active rOPINIRole (REQUIP) 1 mg tabletIndications :Restless Legs Syndrome Take 1.5 tablets (1.5 mg total) by mouth nightly at bedtime. 1 Active prazosin (MINIPRESS) 2 mg capsuleIndication s:Post Traumatic Stress Disorder Take 2 capsules (4 mg total) by mouth nightly Active hydrocortisone 2.5 % ointment Apply topically every 6 (six) hours as needed for rash or irritation 3 Active fluticasone propionate (FLONASE) 50 mcg/actuation nasal sprayIndications: Allergic Rhinitis Administer 2 sprays into each nostril 2 (two) times a day 1 each 3 Active cetirizine (ZyrTEC) 10 mg tablet Take 1 tablet (10 mg total) by mouth daily 3 Active acetaminophen (TYLENOL) 500 mg tablet Take by mouth every 6 (six) hours as needed for pain, headaches or fever 3 Active clonazePAM (KlonoPIN) 0.5 mg tablet Take 2 tablets (1 mg total) by mouth nightly 4 Active ccpszrsy-cgn-PM-l ycopen-lutein 0.4 mg-300 mcg- 250 mcg tablet Take 1 tablet by mouth daily 4 Active polyethylene glycol (MIRALAX) 17 gram/dose bulk powder Take 17 g by mouth daily as needed 4 Active sodium chloride 1,000 mg tablet TAKE 1 TABLET BY MOUTH THREE TIMES DAILY WITH MEALS 270 tablet 3 5 Active propranoloL (INDERAL) 20 mg tablet Take 2 tablets (40 mg total) by mouth 2 (two) times a day 120 tablet 11 5 05/25/19 26 Active cycloSPORINE (RESTASIS) 0.05 % ophthalmic emulsion Administer 1 drop into both eyes 2 (two) times a day 5 Active naltrexone (DEPADE) 50 mg tablet Take 0.25 tablets (12.5 mg total) by mouth 2 (two) times a day 15 tablet 5 Active traZODone (DESYREL) 100 mg tablet Take 1 tablet (100 mg total) by mouth nightly 5 Active plecanatide (Trulance) 3 mg tabletIndications :Irritable bowel syndrome with constipation TAKE 1 TABLET (3 MG TOTAL) BY MOUTH DAILY 30 tablet 11 5 Active Fetzima 40 mg capsule,extended release 24 hr Take 1 capsule (40 mg total) by mouth nightly 5 Active omeprazole (PriLOSEC) 40 mg capsule Take 1 capsule (40 mg total) by mouth 2 (two) times a day before breakfast and dinner 60 capsule 5 Active Rinvoq 15 mg extended release tabletIndications :Seropositive rheumatoid arthritis (HCC) TAKE 1 TABLET BY MOUTH DAILY 90 tablet 1 5 Active mexiletine (MEXITIL) 150 mg capsule Take 1 capsule (150 mg total) by mouth 3 (three) times a day 90 capsule 3 5 04/15/20 25 Active cevimeline (EVOXAC) 30 mg capsuleIndication s:Xerostomia Secondary to Sjogren's Syndrome Take 1 capsule (30 mg total) by mouth 3 (three) times a day 270 capsule 1 5 Active mirabegron ER (MYRBETRIQ) 50 mg tablet extended release 24 hrIndications:OAB (overactive bladder) Take 1 tablet (50 mg total) by mouth daily 30 tablet 11 5 12/25/19 26 Active tiZANidine (ZANAFLEX) 4 mg tablet Take 1 tablet (4 mg total) by mouth every 6 (six) hours as needed for muscle spasms 120 tablet 3 5 Active hydroxychloroquin e (PLAQUENIL) 200 mg tablet TAKE 1 TABLET (200 MG TOTAL) BY MOUTH TWO TIMES DAILY 180 tablet 1 5 Active magnesium oxide (MAG-OX) 400 mg (241.3 mg elemental magnesium) tablet TAKE 1 TABLET (400 MG) BY MOUTH DAILY 90 tablet 5 Active cholecalciferol (VITAMIN D-3) 5,000 unit capsule TAKE 1 CAPSULE (5,000 UNITS TOTAL) BY MOUTH EVERY MORNING 90 capsule 1 5 Active erythromycin (E-MYCIN) 250 mg tablet Take 1 tablet (250 mg total) by mouth daily 90 tablet 5 05/18/19 26 Active erenumab-aooe 140 mg/mL auto-injector Inject 1 mL (140 mg total) under the skin every 30 (thirty) days 1 mL 11 5 Active rimegepant (Nurtec ODT) tablet,disintegra tingIndications:M igraine Take 1 tablet (75 mg total) by mouth daily as needed (as needed when migraine begins, take up to daily) 12 tablet 11 5 02/25/20 26 Active Active Problems Problem Noted Date Diagnosed Date Generalized weakness 11/24/2024 Multiple nasal polyps 07/15/2023 Hypertrophy of nasal turbinates 06/03/2023 Chronic sinusitis 04/08/2023 Anosmia 04/08/2023 Onychomycosis 03/23/2023 Assessment & Plan (03/24/2023 11:40 AM INSIGHT DIRECTOR): Patient endorses discoloration and strange appearance of bilateral big toe nails for the last month following a recent pedicure. She denies redness, pain, or swelling in the area. - No topical agents on formulary. If pt would like inpatient treatment, she could start itraconazole inpatient. However, recommendation (and patient preference) is to start an OTC topical agent (such as efinaconazole) once discharged. Insomnia 03/22/2023 Assessment & Plan (03/22/2023 4:44 PM INSIGHT DIRECTOR): - Continue home ropinirole for restless legs - Ramelteon nightly - Restarted Trazodone 100mg nightly on 03/22. Called patient's regular pharmacy and they confirmed her most recent prescription (filled early Mar 28) including both Trazodone 100mg nightly and Lexapro 20mg daily. Urinary frequency 03/22/2023 Assessment & Plan (03/22/2023 4:47 PM INSIGHT DIRECTOR): Patient has had chronic overactive bladder. Symptoms unchanged during admission. - Continue home oxybutynin Acute non-recurrent sinusitis, unspecified locat ion 03/21/2023 Assessment & Plan (03/25/2023 3:56 PM INSIGHT DIRECTOR): Symptoms for one month including severe congestion with occasional nausea/vomiting, left side facial pain , ear popping, headache, and purulent nasal discharge with occasional bloody tinge. She denied facial numbness, vision loss, hearing loss. CT Head showed no acute intracranial findings. - As of 03/22, she notes she still has some left sided facial pressure and pain (left side of face is mildly tender to palpation) along with mucous discharge, popping in the ears, and mild headache. However, these symptoms have all markedly improved from a few days ago. - Nausea/vomiting and blood-tinged mucus resolved as of 03/19 -CT Sinus 03/19- with acute pansinusitis and Small area of focal dehiscence in the left posterolateral maxillary sinus wall -MRI Face 03/20-diffuse paranasal sinus disease with surrounding inflammatory changes. No definite evidence of intraorbital or intracranial extension of infection. - ENT and ID following. Per ENT, low suspicion for AIF. Likely complicated bacterial sinusitis. Will arrange ENT f/up. No need for dedicated ID f/up. - Per ENT, patient should be getting Afrin spray then neilmed sinus rinse then flonase spray (administer in 30 min intervals) BID. After 3 days of Afrin, just do neilmed sinus rinse + flonase spray BID. - Purulent discharge sent for culture. Prelim results show moderate Gram Positive Cocci. Final culture results pending. - S/p 10 day course of cefdinir and few doses of augmentin - Initially on unasyn 3g q6hrs IV and vancomycin 15mg/kg q12hrs IV. On 03/23, transitioned to Augmentin 875 mg PO BID + Doxycycline 100 mg PO BID. Will complete 14 day course. 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 - Continue home regimen - plaquenil 200 alternating with 400; tizanidine prn - Resume humira injections outpatient - Patient notes she was recently started on naltrexone for RA symptoms. She has been taking oxycodone PRN for severe sinusitis-related facial pain while inpatient, so naltrexone was held. She is not having acute exacerbation of RA symptoms while inpatient, so she is okay with holding off on naltrexone until she returns home. Sjogren's syndrome 05/12/2022 Assessment & Plan (03/22/2023 4:34 PM INSIGHT DIRECTOR): - Continue home cevimeline Weakness of both hands 04/19/2022 Left leg weakness 04/19/2022 Chronic bilateral low back pain with bilateral s ciatica 03/16/2022 Encounter for medication monitoring 01/24/2022 Other constipation 01/04/2022 Assessment & Plan (06/25/2022 12:25 PM INSIGHT DIRECTOR): Recommended daily fiber supplement containing inulin or wheat dextrin. Discussed possible benefits w/r/t gut microbiome and weight. Miralax prn. Assessment & Plan (01/04/2022 1:07 PM CDT): Recommended daily fiber supplement containing inulin or wheat dextrin. Discussed possible benefits w/r/t gut microbiome and weight. Miralax prn. Attention deficit hyperactivity disorder 021 Assessment & Plan (03/22/2023 4:28 PM INSIGHT DIRECTOR): - Continue home adderall 40mg daily Diverticulitis 02/24/2021 Hip pain 02/24/2021 Irritable bowel syndrome 02/24/2021 Assessment & Plan (03/22/2023 4:30 PM INSIGHT DIRECTOR): Has had years of chronic intermittent abd pain and alternating diarrhea and constipation. During admission, she notes no abdominal pain or constipation, but occasional instances of diarrhea that are stable and usual as per her chronic symptoms. - Patient had started trulance a few weeks ago to help with constipation, but notes her IBS symptoms during admission have been more diarrhea like. She noted she is not having constipation problems while inpatient and is okay with holding off on trulance until she returns home. Insulin resistance 09/26/2020 Overview (06/11/2021): Elevated fasting glucose; MELL-IR 3.4 Didn't tolerate metformin. Semaglutide denied by insurance. Assessment & Plan (01/07/2023 5:25 PM CDT): Reviewed most recent labs available. Continue low-carb (<150 g/day), low- glycemic diet. Continue semaglutide (Rybelsus samples -- increase to 3 tablets, 9 mg, daily) Assessment & Plan (06/25/2022 12:20 PM INSIGHT DIRECTOR): Reviewed most recent labs available. Continue low-carb (<150 g/day), low- glycemic diet. Resume semaglutide (Rybelsus) samples. Assessment & Plan (01/04/2022 2:37 PM CDT): Reviewed interim labs. Continue low-carb (<150 g/day), low-glycemic diet. 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 Assessment & Plan (09/25/2021 12:24 PM CDT): Reviewed interim labs. Continue low-carb (<150 g/day), low-glycemic diet. Suggested cautious trial Rybelsus Assessment & Plan (06/11/2021 1:50 PM INSIGHT DIRECTOR): Reviewed interim labs. Continue low-carb (<150 g/day), low-glycemic diet. Discussed options and will try Rybelsus samples. Discussed risks, benefits, alternatives, potential side effects. Assessment & Plan (09/26/2020 9:31 AM CDT): Continue low-carb (<150 g/day), low-glycemic diet. Start semaglutide after getting back on omeprazole. Instructed to stop if she has any recurrent symptoms on semaglutide. GERD (gastroesophageal reflux disease) Assessment & Plan (03/22/2023 4:27 PM INSIGHT DIRECTOR): - Continue pantoprazole 40mg nightly Assessment & Plan (09/26/2020 9:31 AM CDT): Resume omeprazole. F/U PCP. Esophageal dysmotility 07/08/2020 Overview (07/08/2020): Added automatically from request for surgery [id number] Nausea and vomiting 07/08/2020 Overview (07/08/2020): Added automatically from request for surgery [id number] Anxiety disorder 07/05/2020 Post traumatic stress disorder (PTSD) 07/05/2020 Major depressive disorder, recurrent episode, mo derate 07/05/2020 Dysphagia 05/09/2020 Elevated fasting glucose 03/02/2020 Assessment & Plan (08/29/2020 12:33 PM CDT): Labs. Reviewed July labs from PCP -- glucose 115 -- states she was fasting. Continue low-carb (<150 g/day), low-glycemic diet. Discussed starting GLP-1 RA pending labs. Discussed risks, benefits, alternatives, potential side effects. No personal or family history of MTC or MEN2. Referred to websites for additional instructions/info/video. Start semaglutide pending labs. Assessment & Plan (08/14/2020 9:08 PM CDT): Continue low-carb (<150 g/day), low-glycemic diet. Consider GLP-1 RA. Assessment & Plan (06/30/2020 8:46 AM INSIGHT DIRECTOR): Labs per surgery pending. Continue low-carb (<150 g/day), low-glycemic diet. GLP-1 RA remains an option once band is removed -- reluctant to start now due to symptoms. Assessment & Plan (05/09/2020 6:48 PM INSIGHT DIRECTOR): Continue low-carb (<150 g/day), low-glycemic diet. Stop metformin. Discussed possible use of GLP-1 RA, however will defer for now given reflux, emesis. Assessment & Plan (03/02/2020 10:15 PM CDT): Continue low-carb (<150 g/day), low-glycemic diet. Start Metformin 500mg -- take daily for the 1st week, then increase to BID if tolerating. Discussed rationale in setting of insulin resistance. Discussed risks, benefits, alternatives, and potential side effects. Weight loss counseling, encounter for 12/23/2019 Assessment & Plan (01/07/2023 5:21 PM CDT): Reviewed calorie restriction based on BMR as previously detailed. Reviewed recommendation/goal of >/= 150 minutes/week moderate-intensity aerobic exercise. Asked to keep detailed food diary for at least 1 week and bring to next visit and/or continue tracking on phone. Assessment & Plan (06/25/2022 12:15 PM INSIGHT DIRECTOR): Reviewed calorie restriction based on BMR as previously detailed. Reviewed recommendation/goal of >/= 150 minutes/week moderate-intensity aerobic exercise. Asked to keep detailed food diary for at least 1 week and bring to next visit and/or continue tracking on phone. Assessment & Plan (01/04/2022 2:36 PM CDT): Reviewed calorie restriction based on BMR as previously detailed. Reviewed recommendation/goal of >/= 150 minutes/week moderate-intensity aerobic exercise. Asked to keep detailed food diary for at least 1 week and bring to next visit and/or continue tracking on phone. Commended on the fact that with everything that has been going on she hasn't gained weight. Assessment & Plan (10/09/2021 3:18 PM CDT): Reviewed calorie restriction based on BMR as previously detailed. Reviewed recommendation/goal of >/= 150 minutes/week moderate-intensity aerobic exercise. Asked to keep detailed food diary for at least 1 week and bring to next visit and/or continue tracking on phone. Assessment & Plan (09/25/2021 12:22 PM CDT): Reviewed calorie restriction based on BMR as previously detailed. Reviewed recommendation/goal of >/= 150 minutes/week moderate-intensity aerobic exercise. Asked to keep detailed food diary for at least 1 week and bring to next visit and/or continue tracking on phone. Assessment & Plan (06/11/2021 1:42 PM INSIGHT DIRECTOR): Reviewed calorie restriction based on BMR as previously detailed. Reviewed recommendation/goal of >/= 150 minutes/week moderate-intensity aerobic exercise. Asked to keep detailed food diary for at least 1 week and bring to next visit and/or continue tracking on phone. Assessment & Plan (09/26/2020 9:29 AM CDT): Reviewed calorie restriction based on BMR as previously detailed. Reviewed recommendation/goal of >/= 150 minutes/week moderate-intensity aerobic exercise. Asked to keep detailed food diary for at least 1 week and bring to next visit and/or continue tracking on phone. Assessment & Plan (08/29/2020 12:31 PM CDT): Reviewed calorie restriction based on BMR as previously detailed. Reviewed recommendation/goal of >/= 150 minutes/week moderate-intensity aerobic exercise. Asked to keep detailed food diary for at least 1 week and bring to next visit and/or continue tracking on phone. Assessment & Plan (08/14/2020 9:07 PM CDT): Reviewed calorie restriction based on BMR as previously detailed. Reviewed recommendation/goal of >/= 150 minutes/week moderate-intensity aerobic exercise. Asked to keep detailed food diary for at least 1 week and bring to next visit and/or continue tracking on phone. Assessment & Plan (06/30/2020 8:19 AM INSIGHT DIRECTOR): Reviewed calorie restriction based on BMR as previously detailed. Reviewed recommendation/goal of >/= 150 minutes/week moderate-intensity aerobic exercise. Assessment & Plan (05/09/2020 6:44 PM INSIGHT DIRECTOR): Reviewed calorie restriction based on BMR as previously detailed. Reviewed recommendation/goal of >/= 150 minutes/week moderate-intensity aerobic exercise. Asked to keep detailed food diary for at least 1 week and bring to next visit and/or continue tracking on phone. Assessment & Plan (03/02/2020 10:13 PM CDT): Reviewed calorie restriction based on BMR as previously detailed. Reviewed recommendation/goal of >/= 150 minutes/week moderate-intensity aerobic exercise. Asked to keep detailed food diary for at least 1 week and bring to next visit and/or continue tracking on phone. Assessment & Plan (12/23/2019 12:19 PM CDT): Discussed that weight loss will require calorie deficit. Calculated basal metabolic rate and estimated total energy expenditure; discussed 500-1000 kcal/day deficit to lose 1-2 lb per week. Asked to keep detailed food diary for at least 1 week and bring to next visit. Discussed relatively small, although significant, role of exercise in weight loss; greater importance in weight maintenance as shown in Look Ahead study and National Weight Control Registry. Discussed recommendation/goal for 150 minutes per week moderate-intensity aerobic exercise. Fibromyalgia 12/23/2019 HTN (hypertension) 12/23/2019 Assessment & Plan (03/22/2023 4:47 PM INSIGHT DIRECTOR): - Continue home prazosin, lisinopril, and propranolol - Creatinine 1.1 -appears to be baseline Assessment & Plan (12/23/2019 12:20 PM CDT): Reviewed role of diet, exercise, weight loss in controlling blood pressure. Recommended low sodium/DASH diet. Continue current medications. Obstructive sleep apnea 12/23/2019 Assessment & Plan (12/23/2019 12:21 PM CDT): Discussed comorbidities associated with sleep apnea, including effects on weight, and stressed importance of adequate treatment if present. Continue CPAP. Depression 12/23/2019 Assessment & Plan (03/22/2023 4:44 PM INSIGHT DIRECTOR): - Continue home lexapro 20mg daily - Restarted Trazodone 100mg nightly on 03/22. Called patient's regular pharmacy and they confirmed her most recent prescription (filled early Mar 28) including both Trazodone 100mg nightly and Lexapro 20mg daily. - Patient had started fetzima a few weeks ago, but it is not on formulary here. She noted she is not having major depressive symptoms while inpatient and is okay with holding off on fetzima until she returns home. Anxiety 12/23/2019 Assessment & Plan (03/22/2023 4:27 PM INSIGHT DIRECTOR): - Clonopine 0.5 mg nightly Metabolic and nutritional disorder 12/23/2019 Assessment & Plan (01/24/2022 10:07 AM CDT): Labs. Continue low-carb (<150 g/day), low-glycemic diet. Encouraged her to try the Rybelsus. Assessment & Plan (12/23/2019 1:47 PM CDT): She will forward recent labs. Discussed increased risk for DM in setting of obesity and FHx DM. Discussed insulin resistance including effect on weight and risk for progression to diabetes. Recommended low-carb, low-glycemic diet; choose whole grains and avoid more highly processed carbohydrates. Discussed potential benefits of this w/r/t gut microbiome. Referred to ADA and [place] [employer] websites for additional information on topics including glycemic index/carbohydrate choices, protein sources. History of laparoscopic adjustable gastric sidney ng 12/23/2019 Assessment & Plan (05/09/2020 6:46 PM INSIGHT DIRECTOR): Reviewed esophagram with her and referred to bariatric surgery for possible band removal. She is interested in possible conversion to sleeve. Assessment & Plan (03/02/2020 10:13 PM CDT): BaS to assess status. Assessment & Plan (12/23/2019 1:48 PM CDT): F/U with bariatric surgery. Will check with them re appropriate imaging to assess status -- ?BaS. Class 3 severe obesity due t o excess calories with serious comorbidity in adult 12/23/2019 Assessment & Plan (01/07/2023 5:26 PM CDT): Obesity is improved.. Plan: Diet interventions: as noted., Regular aerobic exercise program discussed., and Medication as prescribed. Follow up in [] 1 month; [] 2 months; [x] 3 months; [] 6 months; [] Other: Assessment & Plan (06/25/2022 12:24 PM INSIGHT DIRECTOR): Obesity is worsening.. Plan: Diet interventions: as noted.., Regular aerobic exercise program discussed. and Medication as prescribed. Assessment & Plan (01/24/2022 10:07 AM CDT): Obesity is unchanged.. Plan: Diet interventions: as noted.., Regular aerobic exercise program discussed. and Medication as prescribed. Assessment & Plan (01/04/2022 2:38 PM CDT): Obesity is improving with treatment. Plan: Diet interventions: as noted.., Regular aerobic exercise program discussed. and medication as prescribed. Assessment & Plan (09/25/2021 12:23 PM CDT): Obesity is unchanged. Diet interventions: as noted. Regular aerobic exercise program discussed. Pharmacotherapy as ordered. Assessment & Plan (06/11/2021 1:51 PM INSIGHT DIRECTOR): Obesity is unchanged. Diet interventions: as noted. Regular aerobic exercise program discussed. Pharmacotherapy as ordered. Assessment & Plan (09/26/2020 9:32 AM CDT): Obesity is unchanged. Diet interventions: as noted. Regular aerobic exercise program discussed. Pharmacotherapy as ordered. Assessment & Plan (08/29/2020 12:38 PM CDT): Obesity is improving with lifestyle modifications. Diet interventions: as noted. Regular aerobic exercise program discussed. Assessment & Plan (08/14/2020 9:09 PM CDT): Obesity is unchanged. Diet interventions: as noted. Regular aerobic exercise program discussed. Pursuing bariatric surgery. Assessment & Plan (06/30/2020 8:51 AM INSIGHT DIRECTOR): Reviewed Dr. Walker's note. Obesity is unchanged. Diet interventions: as noted. Regular aerobic exercise program discussed. Pursuing bariatric surgery -- plans to have band removed; interested in bypass. Assessment & Plan (05/09/2020 6:49 PM INSIGHT DIRECTOR): Obesity is overall unchanged. Diet interventions: as noted. Regular aerobic exercise program discussed. Assessment & Plan (03/02/2020 10:16 PM CDT): Obesity is unchanged. Diet interventions: as noted. Regular aerobic exercise program discussed. Pharmacotherapy as ordered. Assessment & Plan (12/23/2019 1:52 PM CDT): Obesity is worsening. Counseling was provided to the child and family regarding behavior modifications, nutrition and physical activity. General weight loss/lifestyle modification strategies discussed (elicit support from others; identify saboteurs; non-food rewards, etc). Behavioral treatment: recommended counseling/CBT. Diet interventions: as noted. Informal exercise measures discussed, e.g. taking stairs instead of elevator. Regular aerobic exercise program discussed. Discussed potential weight-positive effects of some of his/her current medications and potential alternatives. Continue current medications for now. She will ask her psychiatrist about Paxil; consider fluoxetine as this was effective in the past and has a better side effect profile w/r/t weight. More detailed recommendations pending review of labs, food record. Consider topiramate in setting of disordered eating, chronic pain/MENEZES. Resolved Problems Problem Noted Date Diagnosed Date Resolved Date Deviated nasal septum 06/03/20232023 Encounters Date Type Department Care Team Description 03/25/2025 Telephone [facility] Medicine Gastroenterology [address] [place] [address] Medicine 12th [place] [address] [place] [address] Crissy Sheets (Trulance 3MG tablets) 03/11/2025 [facility]phone [facility] [address] [place] [address] Outpatient Health 4th Floor [address] [place] [address] Lupe Conde RN 02/26/2025 [facility]phone [facility] [address] [place] [address] [facility] 4th Floor [address] [place] [address] Yaritza Rodriguez 02/25/2025 [facility] [address] [place] [address] 4th Floor [address] [place] [address] Lupe Conde RN 02/24/2025 3:30 PM CDT Office Visit [facility] [address] [facility] 4th Floor [address] [place] [phone] Nicci Malave MD Obstructive sleep apnea syndrome (Primary Dx); Other migraine without status migrainosus, not intractable 02/23/2025 11:00 AM CDT Office Visit [facility] [address] [facility] 5th [place] [address] [place] [phone] Latanya Rosenthal MD Rheumatoid arthritis involving multiple sites, unspecified whether rheumatoid factor present (HCC) (Primary Dx) 02/17/2025 Telephone [facility] ENT [address] [facility] Office Building [address] [place] [phone] Edmundo Serrato MD 02/17/2025 Orders Only [facility] ENT [address] [facility] Office Building [address] [place] [phone] Edmundo Serrato MD 12/24/2024 11:40 AM CDT Office Visit [facility] - [facility] Urology [address] [facility] 11th [place] [address] [place] [phone] Areli Gardner MD OAB (overactive bladder) (Primary Dx); BRIDGETTE (stress urinary incontinence, female) from Last 3 Months Surgical History Surgery Date Site/Laterality Comments LAPAROSCOPIC GASTRIC BANDING 05/06/2004 - 05/05/2005 removal 2020 TOTAL HIP ARTHROPLASTY Left CHOLECYSTECTOMY ENDOMETRIAL ABLATION WISDOM TOOTH EXTRACTION COLONOSCOPY May 2021 SINUS SURGERY 2023 TUBAL LIGATION 05/2001 ESOPHAGUS SURGERY Jan 2023 JOINT REPLACEMENT 08/2011 BARIATRIC SURGERY [id number] Medical History Medical History Date Comments Hip dysplasia ADD (attention deficit disorder) Hypertension Sleep apnea intermittant 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 P use Pre-diabetes Diverticulitis Diverticulosis Hiatal hernia Restless leg Tinnitus Hyperlipidemia Chronic pain Fibromyalgia TMJ (dislocation of temporomandibular joint) Asthma Insomnia Adhd Cyclic citrullinated peptide (CCP) antibody positive Fatigue Migraines Vitamin D deficiency Psoriasis Major depressive disorder Generalized anxiety disorder Carli-Danlos syndrome Nausea and vomiting 07/08/2020 GERD (gastroesophageal reflu x disease) Aprox 2000 Allergic rhinitis Seasonal Menstrual problem Teen years History of transfusion 2008 Dysmenorrhea Teen years until abl ation in 2007 Dizziness Lifetime, but been w orse last few years Arthritis Aprox 2008 Autoimmune disease 2018 Family History Medical History Relation Name Comments Hypertension Brother Charles Amezcua Carli-Danlos syndrome Daughter 1 Arthritis Father Eber Amezcua Diabetes Father Eber Amezcua Hyperlipidemia Father Eber Amezcua Hypertension Father Eber Amezcua Colon cancer Maternal Grandmother Arthritis Mother Doris Amezcua Asthma Mother Doris Amezcua Atrial fibrillation Mother Doris Amezcua Depression Mother Doris Amezcua Hearing loss Mother Doris Amezcua Heart disease Mother Doris Amezcua Hypertension Mother Doris Amezcua Mental illness Mother Doris Amezcua Obesity Mother Doris Amezcua Snoring Mother Doris Amezcua Colon cancer Mother's Brother 1 Colon cancer Mother's Brother 2 Anesthesia problems Neg Hx Relation Name Status Comments Brother Charles Amezcua Alive Daughter 1 Alive Daughter 2 Alive Father Eber Amezcua Alive Maternal Grandmother Mother Doris Amezcua Alive Mother's Brother 1 Alive Mother's Brother 2 Alive Son Alive Social History Tobacco Use Types Packs/Day Years Used Date Smoking Tobacco: Never Smokeless Tobacco: Never Tobacco Cessation:Counseling Given: Not Answered Alcohol Use Standard Drinks/Week Comments Never 0 (1 standard drink = 0.6 oz pur e alcohol) [facility] Utilities Answer Date Recorded In the past 12 months has e electric, gas, oil, or water [employer] threatened to shut off services in your home? No 11/25/2024 Social Connection and Isolation Panel Answer Date Recorded In a typical week, how many times do you talk on the phone with family, friends, or neighbors? Three times a week 11/25/2024 How often do you get togethe r with friends or relatives? Three times a week 11/25/2024 How often do you attend formerly [facility] or hoahaoism services? Never 11/25/2024 Do you belong to any clubs o r organizations such as yazdanism groups, unions, fraternal or athletic groups, or [...] place to sleep or slept in a penitentiary (including now)? No 03/29/2023 Housing Stability Vital Sign Answer Gabriel e Recorded In the last 12 months, was t here a time when you were not able to pay the mortgage or rent on time? No 11/25/2024 In the past 12 months, how m any times have you moved where you were living? 0 11/25/2024 At any time in the past 12 m [facility], were you homeless or living in a penitentiary (including now)? No 11/25/2024 AUDIT-C Answer Date [...] on file Legal Sex Female 12:21 AM INSIGHT DIRECTOR Gender Identity Female 03/20/2023 8:17 AM INSIGHT DIRECTOR Sexual Orientation Straight 03/20/2023 8: 17 AM INSIGHT DIRECTOR Last Filed Vital Signs Vital Sign Reading Time Taken Comments Blood Pressure 141/92 02/24/2025 3:27 PM CDT Pulse 82 02/24/2025 3:27 PM CDT Temperature 36.5 C (97.7 F) 02/23/2025 10:57 AM CDT Respiratory Rate 18 02/24/2025 3:27 PM CDT Oxygen Saturation 99% 02/24/2025 3:27 PM CDT Inhaled Oxygen Concentration - - Weight 125.2 kg (276 lb) 02/24/2025 3:27 PM CDT Height 177.8 cm (5' 10) 02/24/2025 3:27 PM CDT Body Mass Index 39.6 02/24/2025 3:27 PM CDT Plan of Treatment Health Maintenance Due Date Last Done Comments Cervical Cancer Screening 1971 Colon Cancer Screening-Colonoscopy 1971 Depression Screening 1971 Hepatitis B Screening 07/03/1989 Regular Well Visit/Exam 18-64 07/03/1989 Pneumococcal vaccine <65 (1 of 2 - PCV) 07/03/1990 Breast Cancer Screening-Mammogram 01/26/2024 023 Covid-19 Vaccine ( season) 2025 04/30/2021, 08/21/2020, 07/31/2020 Influenza Vaccine (#1) 2025 6, 03/21/2015, 01/21/2014 DTaP/Tdap/Td Vaccine (2 - Td or Tdap) 04/06/202506/2014 Hepatitis C Screening Completed 03/27/2021 Zoster Vaccine Completed 12/20/2023, 09/17/2023 Goals Goal Patient Goal Type Associated Problems [...] lifestyle strategies and compensatory methods as needed Procedures Procedure Name Priority Date/Time Associated Diagnosis Comments VITAMIN D 25 HYDROXY Routine 02/12/2025 10:47 AM CDT Vitamin D deficiency CRP (ACUTE PHASE) Routine 01/14/2025 11: 07 AM CDT COMPREHENSIVE METABOLIC PANEL Routine 01/14/2025 11:07 AM CDT CBC WITH AUTO DIFFERENTIAL Routine 01/14/2025 11:07 AM CDT High risk medication use Seropositive rheumatoid arthritis (HCC) HEPATITIS PANEL, ACUTE Routine 03/27/2021 4:46 PM INSIGHT DIRECTOR Cyclic citrullinated peptide (CCP) antibody positive Chronic pain syndrome Arthralgia of multiple sites from Last 3 Months or Most Recently Relevant to Health Maintenance Results * Vitamin D 25 hydroxy (02/12/2025 10:47 AM CDT) Vitamin D 25-OH 33 30 - 100 ng/mL [facility] Comment: Vitamin D Status 25-OH Vitamin D: Deficiency: <20 ng/mL Insufficiency: 20 - 29 ng/mL Optimal: > or = 30 ng/mL For 25-OH Vitamin D testing on patients on D2-supplementation and patients for whom quantitation of D2 and D3 fractions is required, the [facility](TM) 25-OH VIT D, (D2,D3), LC/MS/MS is recommended: order code 43711 (patients >2yrs). See Note 1 Note 1 For additional information, please refer to http://education.[employer]/faq/DDK083 (This link is being provided for informational/ educational purposes only.) Blood 02/12/2025 10:4 7 AM CDT 02/12/2025 10:47 AM CDT Narrative [facility] - 02/13/2025 2:49 AM CDT FASTING:NO FASTING: NO us Latanya Rosenthal MD LAB BLOOD ORDERABLES Final Resul t [facility] [address] [place] [address] * (ABNORMAL) CBC with auto differential (01/14/2025 11:07 AM CDT) WBC 5.6 3.8 - 10.8 Thousand/u L [facility] RBC, POC 4.64 3.80 - 5.10 Million/uL [facility] Hgb 12.4 11.7 - 15.5 g/dL [facility] Hct 40.3 35.0 - 45.0 % [facility] MCV 86.9 80.0 - 100.0 fL [facility] MCH 26.7(L) 27.0 - 33.0 pg [facility] MCHC 30.8(L) 32.0 - 36.0 g/dL [facility] Comment: For adults, a slight decrease in the calculated MCHC value (in the range of 30 to 32 g/dL) is most likely not clinically significant; however, it should be interpreted with caution in correlation with other red cell parameters and the patient's clinical condition. Rdw 14.4 11.0 - 15.0 % [facility] Platelets 283 140 - 400 Thousand/u L [facility] MPV 11.8 7.5 - 12.5 fL [facility] Neutrophils, abs 3,119 1,500 - 7,800 cells/uL [facility] Lymphocytes, abs 1,663 850 - 3,900 cells/uL [facility] Monocyte abs 526 200 - 950 cells/uL [facility] Eosinophils, abs 252 15 - 500 cells/uL [facility] Basophils, abs 39 0 - 200 cells/uL [facility] Neutrophils 55.7 % [facility] Lymphocyte pct 29.7 % [facility] Monocytes 9.4 % [facility] Eosinophils 4.5 % [facility] Basophils 0.7 % [facility] Blood 01/14/2025 11:0 7 AM CDT 01/14/2025 11:08 AM CDT Narrative [facility] - 01/14/2025 5:12 PM CDT AN UPDATE OR CORRECTION HAS BEEN MADE TO NAME Latanya Rosenthal MD LAB BLOOD ORDERABLES Final Resul t Performing Organization Address [facility] Co de Phone Number [facility] [address] [place] [address] * CRP (acute phase) (01/14/2025 11:07 AM CDT) Pathologist [facility] C-RP <5.0 <8.0 mg/L [facility] 01/14/2025 11:0 7 AM CDT 01/14/2025 11:08 AM CDT Narrative [facility] - 01/14/2025 5:12 PM CDT AN UPDATE OR CORRECTION HAS BEEN MADE TO NAME Latanya Rosenthal MD LAB BLOOD ORDERABLES Final Resul t Performing Organization Address [facility] de Phone Number [facility] [address] [place] [address] * (ABNORMAL) Comprehensive metabolic panel (01/14/2025 11:07 AM CDT) Glucose 114(H) 65 - 99 mg/dL [facility] Comment: Fasting reference interval For someone without known diabetes, a glucose value between 100 and 125 mg/dL is consistent with prediabetes and should be confirmed with a follow-up test. BUN 13 7 - 25 mg/dL [facility] Creatinine 1.18(H) 0.50 - 1.03 mg/dL [facility] eGFR 55(L) > OR = 60 mL/min/1.7 3m2 [facility] BUN/creat ratio 11 6 - 22 (calc) [facility] Sodium 138 135 - 146 mmol/L [facility] Potassium, pl 4.8 3.5 - 5.3 mmol/L [facility] Chloride 105 98 - 110 mmol/L [facility] CO2 25 20 - 32 mmol/L [facility] Calcium 9.8 8.6 - 10.4 mg/dL [facility] Protein, sr 7.4 6.1 - 8.1 g/dL [facility] Albumin 4.5 3.6 - 5.1 g/dL [facility] GLOBULIN 2.9 1.9 - 3.7 g/dL (calc) [facility] Alb/glob ratio 1.6 1.0 - 2.5 (calc) [facility] Bilirubin, total 1.1 0.2 - 1.2 mg/dL [facility] Alk phos 73 37 - 153 U/L [facility] AST 22 10 - 35 U/L [facility] ALT (SGPT) 15 6 - 29 U/L [facility] 01/14/2025 11:0 7 AM CDT 01/14/2025 11:08 AM CDT Narrative [facility] - 01/14/2025 5:12 PM CDT AN UPDATE OR CORRECTION HAS BEEN MADE TO NAME us Latanya Rosenthal MD LAB BLOOD ORDERABLES Final Resul t [facility] [address] [place] [address] * Hepatitis panel, acute (03/27/2021 4:46 PM INSIGHT DIRECTOR) Hep A IgM Nonreactive Nonreactive [facility] Comment: Interpretive Data: If Hep A IgM Ab is reported as Equivocal, a new sample should be drawn in two weeks for testing. Current interpretive data was last revised on 19. Hep B core IgM Nonreactive Nonreactive [facility] Comment: Interpretive Data If HepB Core IgM Ab is reported as Equivocal, a new sample should be drawn in two weeks for testing. Current interpretive data was last revised on 19. Hep C Ab Nonreactive Nonreactive [facility] Comment:Antibodies to HCV no t detected. Does NOT exclude the possibility of recent exposure to HCV. HepBsAg Nonreactive Nonreactive [facility] Blood 03/27/2021 4:46 PM INSIGHT DIRECTOR 03/27/2021 7:21 PM INSIGHT DIRECTOR Latanya Rosenthal MD LAB MICROBIOLOGY - GENERAL ORDER ROSITA Final Result [facility] Department [place] [address] from Last 3 Months or Most Recently Relevant to Health Maintenance Insurance [facility] Advance Directives For more information, please contact: [phone] Documents on File Type Date Recorded Patient Seasonal Customer Service Associate Expl anation ADVANCE DIRECTIVE 03/22/2023 6:00 PM SB R OF GIS SOFTWARE ENGINEER-MEDICAL * LIMITED - No CPR (Latest Code Status on File) Date Activated Date Inactivated Comments 11/24/2024 8:59 PM 11/26/2024 6:56 PM Question Answer Comments Provide aggressive medical m anagement before a full cardiopulmonary arrest occurs. Use antibiotics, IV Fluids, and medical treatment unless specifically selected below: No intubationNo cardioversionNo non-invasive ventilation * Full Code Date Activated Date Inactivated Comments 2023 4:03 PM 07/05/2023 4:05 PM * Full Code Date Activated Date Inactivated Comments 03/21/2023 8:56 AM 03/25/2023 8:33 PM * Full Code Date Activated Date Inactivated Comments 01/16/2023 7:50 AM 01/16/2023 3:09 PM Care Teams Type Proof Reproducer Relationship Specialty Start Date End Date Jay Lee MD [address] [place] [address] [place] [address] PCP - General Family Medicine 02/20/24 Emilee Goldstein PA [address] [place] [address] 03/18/23
--- OUTSIDE RECORDS SUMMARY | 2025-03-26 14:32 | XMS_ITS | Encounter Summary ---
Author Organization [facility] Healthcare Address [address] [place] [address] Care Team Providers Care Head Filter Tank Tender Helper Name Role Phone Emilee Goldstein Unavailable [phone] Jay Lee MD Primary Care Provider [phone] Encounter Details Date Type Department Care Team (Late st Contact Info) Description 09/22/2024 Telephone [facility] [address] [facility] 4th Floor [address] [place] [address] Ne Herman Social History Tobacco Use Types Packs/Day Years Used Date Smoking Tobacco: Never Smokeless Tobacco: Never [facility] Utilities Answer Date Recorded In the past 12 months has [employer] electric, gas, oil, or water company threatened [...] declined 03/29/2023 How often do you attend jew or hinduism serv ices? Patient declined 03/29/2023 Do you belong to any clubs o r organizations such as jew groups, unions, fraternal or athletic groups, or school groups? Patient declined 03/29/2023 How often do you attend meet ings of the clubs or organizations you belong to? Patient declined 03/29/2023 Are you , , di vorced, , never , or living with a partner? 03/29/2023 AUDIT-C Answer Date Recorded Q1: How often do you have a drink containing alcohol? Never 08/27/2024 Q2: How many drinks containi ng alcohol do you have on a typical day when you are drinking? Patient does not drink Q3: How often do you have si x or more drinks on one occasion? Never 08/27/2024 Overall Financial Resource Strain (CARDIA) Answe r [...] you didn't have money to get more. Never true 09/2024 PRAPARE - Transportation Answer Date Re corded [...] place to sleep or slept in a care home (including now)? No 03/29/2023 Personal Safety Answer Date Recorded Have you ever been in or are you currently in a harmful physical or emotional relationship or is someone making you feel afraid or unsafe? Denies 08/15/2024 Comments No Sex and Gender Information Value Date Recorded Sex Assigned at Not on file Legal Sex Female 12:21 AM VETERINARY MILK SPECIALIST Gender Identity Female 03/20/2023 8:17 AM VETERINARY MILK SPECIALIST Sexual Orientation Straight 03/20/2023 8: 17 AM VETERINARY MILK SPECIALIST documented as of this encounter Plan of [...] Date Last Indicated Resolved Time COVID: Suspected 11/24/2024 11/24/2024 11/24/2024 1:16 PM CDT COVID19 11/24/2024 11/24/2024 12/06/2024 7:26 PM CDT COVID: Recovered Comment:Added based on recent COVID infection. 12/06/2024 12/09/2024 03/06/2025 7:27 PM C DT documented as of this encounter Care Teams Head Filter Tank Tender Helper Relationship Specialty Start Date End Date Jay Lee MD [facility] [place] [address] PCP - General Family Medicine 02/20/24 Emilee Goldstein PA [address] [place] [address] 03/18/23 documented as of this encounter
--- OUTSIDE RECORDS SUMMARY | 2025-03-26 14:32 | XMS_ITS | Encounter Summary ---
Author Organization [facility] Address [address] [place] [address] Phone Care Team Providers Care Bicycle Racer Name Role Phone Nina Dominguez MD Primary Care Provider + Jeremiah Hoffman APRN, ELECTRICAL AND INSTRUMENTATION MANAGER Unavailable Reason for Visit * Reason Comments Medication Refill Encounter Details Date Type Department Care Team (Late st Contact Info) Description 08/27/2023 Refill [facility] [address] [place] [address] Jeremiah Hoffman APRN, ELECTRICAL AND INSTRUMENTATION MANAGER [address] [place] [address] Medication Refill Social History Tobacco Use Types Packs/Day Years Used Date Smoking Tobacco: Never Smokeless Tobacco: Never Alcohol Use Standard Drinks/Week Comments Never 0 (1 standard drink = 0.6 oz pur e alcohol) Comments No Sex and Gender Information Value Date Recorded Sex Assigned at Not on file Legal Sex Female 3:51 PM LOLLYPOP MACHINE OPERATOR Gender Identity Not on file Sexual Orientation Not on file documented as of this encounter Plan of Treatment Not on file documented as of this encounter Visit Diagnoses Not on filedocumented in this encounter Care Teams Bicycle Racer Relationship Specialty Start Date End Date Nina Dominguez MD [address] [place] [id number] PCP - General Family Medicine 07/01/23 Jeremiah Hoffman APRN, ELECTRICAL AND INSTRUMENTATION MANAGER [address] [place] [address] Nurse Practitioner Advanced Practice Nurse 07/01/23 documented as of this encounter
--- OUTSIDE RECORDS SUMMARY | 2025-03-26 14:32 | XMS_ITS | Encounter Summary ---
Author Organization [facility] Address [address] [place] [address] Phone Care Team Providers Care Coiled Coil Inspector Name Role Phone Monica Grijalva MD Primary Care Provider + Monica Grijalva MD Primary Care Provider + Monica Grijalva MD Primary Care Provider + Nevaeh Bradford MD Primary Care Provider Nina Dominguez MD Primary Care Provider + Emilee Goldstein Primary Care Provider [phone] Nina Dominguez MD Primary Care Provider + Emilee Goldstein Unavailable [phone] Kendra Kumar RN Unavailable [phone] Unknown, Notinfile Primary Care Provider Unavail able Jay Lee MD Primary Care Provider [phone] Encounter Details Date Type Department Care Team (Late st Contact Info) Description 07/19/[address] [facility] Medical Office Building [address] [place] [address] Jenn Calle Social History Tobacco Use Types Packs/Day Years Used Date Smoking Tobacco: Never Smokeless Tobacco: Never AUDIT-C Answer Date Recorded Q1: How often do you have a drink containing alc ohol? Monthly or less 07/20/2020 Q2: How many drinks containi ng alcohol do you have on a typical day when you are drinking? 1 or 2 07/20/2020 Q3: How often do you have si x or more drinks on one occasion? Never 07/20/2020 Comments No Sex and Gender Information Value Date Recorded Sex Assigned at Not on file Legal Sex Female 12:21 AM CONCRETE TESTER Gender Identity Female 03/20/2023 8:17 AM CONCRETE TESTER Sexual Orientation Straight 03/20/2023 8: 17 AM CONCRETE TESTER documented as of this encounter Functional Status * Question Answer Date of Assessment Author MAP (mmHg) 75 07/20/2020 12:20 PM Sylvia Buenrostro RN * Nieves Fall Risk Question Answer Date of Assessment Author History of Falling 0 07/20/2020 7:36 AM Yoon Wright RN Secondary Diagnosis 15 07/20/2020 7:36 AM Yoon El RN Ambulatory Aids 0 07/20/2020 7:36 AM HIT Yoon Mir RN Intravenous Therapy/Heparin/Saline Lock 20 07/20/2020 7:36 AM Iván Wright RN Gait/Transferring 0 07/20/2020 7:36 AM Yoon Wright RN Mental Status 0 07/20/2020 7:36 AM Yoon Sousa RN Nieves Fall Risk Score (Score >= 45 places fall precaution order) 35 07/20/2020 7:36 AM Yoon Wright RN * Maxim Scale Question Answer Date of Assessment Author Sensory Perceptions 4 07/20/2020 7:36 AM Yoon El RN Moisture 4 07/20/2020 7:36 AM Yoon Cervantes RN Activity 4 07/20/2020 7:36 AM Yoon Cervantes RN Mobility 4 07/20/2020 7:36 AM Yoon Cervantes RN Nutrition 4 07/20/2020 7:36 AM Yoon Cervantes RN Friction and Shear 3 07/20/2020 7:36 AM Yoon Wright RN Maxim Scale Score 23 07/20/2020 7:36 AM Yoon Wright RN * Alcohol Use Question Answer Date of Assessment Author Q1: How often do you have a drink containing alcohol? Monthly or less 07/20/2020 7:36 AM Yoon Wright RN Q2: How many drinks containing alcohol do you have on a typical day when you are drinking? 1 or 2 07/20/2020 7:36 AM Yoon Wright RN Q3: How often do you have six or more drinks on one occasion? Never 07/20/2020 7:36 AM Yoon Wright RN * Integumentary Question Answer Date of Assessment Author Skin Color Appropriate for ethnicity 07/20/2020 12:30 PM Sylvia Buenrostro RN Skin Condition/Temp Warm;Dry 07/20/2020 12:30 PM C Sylvia Lopez RN Skin Integrity Surgical incision 07/20/2020 12:30 PM C Sylvia Lopez RN Skin Turgor Non-tenting 07/20/2020 10:39 AM Sylvia Buenrostro RN Integumentary (WDL) X 07/20/2020 12:30 PM C DT Sylvia Douglass RN Skin Location abdomen 07/20/2020 10:39 AM Sylvia Man RN * Wound (LDAs) Question Answer Date of Assessment Author Type of Wound (LDA) Surgical site 07/20/2020 12:30 PM Sylvia Buenrostro RN * Maxim Scale Question Answer Date of Assessment Author Maxim Scale Used Maxim 07/20/2020 7:36 AM Yoon Wright RN documented as of this encounter Mental Status * Question Answer Entry Date Author Level of Consciousness Drowsy 12:30 PM CDT Will, Sylvia Nielsen RN Orientation Oriented X4 (person, place, time, situation) 07/20/2020 12:30 PM CDT WillSylvia RN Neuro (WDL) X 07/20/2020 12:30 PM CDT Will, Sylvia Nielsen RN documented in this encounter Plan of Treatment Not on file documented as of this encounter Visit Diagnoses Not on filedocumented in this encounter Additional Health Concerns Infection Onset Date Last Indicated Resolved Time COVID: Suspected 03/19/2023 03/19/2023 03/20/2023 12:21 AM CONCRETE TESTER COVID: Suspected 08/16/2024 08/16/2024 08/16/2024 3:03 AM CDT COVID: Suspected 11/24/2024 11/24/2024 11/24/2024 1:16 PM CDT COVID19 11/24/2024 11/24/2024 12/06/2024 7:26 PM CDT COVID: Recovered Comment:Added based on recent COVID infection. 12/06/2024 12/09/2024 03/06/2025 7:27 PM C DT documented as of this encounter Care Teams Coiled Coil Inspector Relationship Specialty Start Date End Date Monica Grijalva MD PCP - General Internal Medicine 05/30/20 07/19/20 Monica Grijalva MD PCP - General 07/20/20 07/20/20 Monica Grijalva MD PCP - General 07/21/20 07/30/20 Nevaeh Bradford MD [address] [place] [address] PCP - General Family Practice 08/04/20 03/26/21 Nina Dominguez MD [address] [place] [address] PCP - General Family Medicine 03/27/21 09/24/22 Emilee Goldstein PA [address] [place] [address] PCP - General 09/25/22 03/17/23 Nina Dominguez MD [address] [place] [address] PCP - General Family Medicine 03/18/23 02/06/24 Unknown, Notinfile PCP - General 02/07/24 02/19/24 Jay Lee MD [address] [facility] [place] [place] [address] PCP - General Family Medicine 02/20/24 Emilee Goldstein PA [address] [place] [address] 03/18/23 Kendra Kumar, RN [address] [facility] [address] [place] [address] [employer] Outpatient Tape Librarian 03/26/23 04/23/23 documented as of this encounter
--- OUTSIDE RECORDS SUMMARY | 2025-03-26 14:32 | XMS_ITS | Clinical Summary ---
Author Organization [facility] Address [address] [place] [address] Phone Care Team Providers Care Installation Coordinator Name Role Phone Nina Dominguez MD Primary Care Provider + Jeremiah Hoffman APRN, [employer] ARCHITECT Unavailable [phone] Allergies Active Allergy Reactions Criticality Noted Date Comments Gabapentin Unknown 07/01/2023 Latex Rash Medium 2023 Leflunomide Unknown 07/01/2023 Metformin Unknown 07/01/2023 Medications acetaminophen Extra Strength (TYLENOL) 500 MG Tablet 06/17/2023 Active Humira, 2 Pen, 40 MG/0.4ML Pen-injector Kit 04/25/2023 Ac tive amphetamine-dext roamphetamine (ADDERALL) 20 MG Tablet 06/28/2023 Active cefdinir (OMNICEF) 300 MG Capsule TAKE 1 CAPSULE BY MOUTH EVERY 12 HOURS 03/06/2023 Active Allergy Relief Cetirizine 10 MG Tablet 06/17/2023 Active cevimeline (EVOXAC) 30 MG Capsule 06/17/2023 Active Vitamin D3 (Cholecalciferol ) 125 MCG Tablet Take 2,500 Units by mouth. Active clonazePAM (KlonoPIN) 0.5 MG Tablet 06/18/2023 Active doxycycline hyclate (VIBRA-TABS) 100 MG Tablet TAKE 1 TABLET BY MOUTH TWICE DAILY FOR 7 DAYS 05/15/2023 Active Doxycycline Monohydrate 100 MG Capsule TAKE 1 CAPSULE BY MOUTH TWICE DAILY FOR 11 DAYS 03/25/2023 Active escitalopram (LEXAPRO) 10 MG Tablet 04/02/2023 Active escitalopram (LEXAPRO) 20 MG Tablet 03/08/2023 Active estradiol (ESTRACE) 0.1 MG/GM Cream 06/12/2023 Active fluticasone (FLONASE) 50 MCG/ACT Suspension 06/17/2023 Active hydrocortisone 2.5 % Ointment Apply. 03/25/2023 Acti ve hydroxychloroqui ne (PLAQUENIL) 200 MG Tablet 06/14/2023 Activ e levoFLOXacin (LEVAQUIN) 750 MG Tablet 06/04/2023 Active Fetzima 40 MG CAPSULE SR 24 HR 06/18/2023 Ac tive lisinopril (PRINIVIL, ZESTRIL) 20 MG Tablet 03/08/2023 Active LYCOPENE PO 06/17/2023 Active magnesium oxide (MAG-OX) 400 (240 Mg) MG Tablet 06/17/2023 Active CertaVite Senior/Antioxida nt Tablet 06/17/2023 Active Melatonin 10 MG Tablet Take 10 mg by mouth nightly. Active naltrexone (DEPADE) 50 MG Tablet 06/23/2023 Active omeprazole (PriLOSEC) 20 MG CAPSULE DELAYED RELEASE Take 20 mg by mouth 2 times daily. 06/08/2023 Active pantoprazole (PROTONIX) 40 MG Tablet Delayed Response 03/08/2023 Active Trulance 3 MG Tablet 06/14/2023 Active polyethylene glycol (GLYCOLAX) 17 GM/SCOOP Powder 06/14/2023 Act mai prazosin (MINIPRESS) 2 MG Capsule 06/14/2023 Active pregabalin (LYRICA) 50 MG Capsule 06/19/2023 Active propranolol (INDERAL) 20 MG Tablet 06/14/2023 Active rOPINIRole (REQUIP) 1 MG Tablet 06/14/2023 Active sodium chloride (OCEAN) 0.65 % Solution 03/20/2023 Active tiZANidine (ZANAFLEX) 4 MG Tablet 06/22/2023 Active traZODone (DESYREL) 100 MG Tablet 06/14/2023 Active Gemtesa 75 MG TabletIndication s:OAB (overactive bladder) TAKE 1 TABLET BY MOUTH DAILY 30 Tablet 12/27/2023 Active Social History Tobacco Use Types Packs/Day Years Used Date Smoking Tobacco: Never Smokeless Tobacco: Never Tobacco Cessation:Counseling Given: Not Answered Alcohol Use Standard Drinks/Week Comments Never 0 (1 standard drink = 0.6 oz pur e alcohol) Comments No Sex and Gender Information Value Date Recorded Sex Assigned at Not on file 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 Gender Identity Not on file Sexual Orientation Not on file Last Filed Vital Signs Vital Sign Reading Time Taken Comments Blood Pressure 126/72 08/19/2023 1:05 PM CDT Pulse 87 08/19/2023 1:05 PM CDT Temperature 36.3 C (97.3 F) 07/01/2023 11:19 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 Respiratory Rate 20 08/19/2023 1:05 PM CDT Oxygen Saturation 97% 07/01/2023 11:19 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 Inhaled Oxygen Concentration - - Weight 120.2 kg (265 lb) 08/19/2023 1:05 PM CDT Height 177.8 cm (5' 10) 08/19/2023 1:05 PM CDT Body Mass Index 38.02 08/19/2023 1:05 PM CDT Plan of Treatment Health Maintenance Due Date Last Done Comments Hepatitis C Virus (HCV) Screening 1970 Mammogram 1970 TdaP Immunization 1971 Hepatitis B Immunization (1 of 3 - 19+ 3-dose series) 07/03/1990 Zoster Immunization (1 of 2) 07/03/1990 Pap Smear 07/03/1992 Cervical Cancer Screening (CCS) 07/03/2001 HPV/Cotest 07/03/2001 Cologuard 07/03/2016 Immunochemical Fecal Occult Blood 07/03/2016 Pneumococcal Immunization (5 0+ years) (1 of 1 - PCV) 07/03/2021 Respiratory Syncytial Virus (RSV) Immunization (Adult) (1 - Risk 50-74 years 1-dose series) 07/03/2021 Influenza Immunization (#1) 2025 SARS-COV-2 Immunization (2024- season) 2025 04/30/2021, 08/21/2020, 07/31/2020 Colonoscopy 05/19/2031 05/19/2021 Colorectal Cancer Screening 05/19/2031 Human Papillomavirus (HPV) Immunization Aged Out No longer eligible b ased on patient's age to complete this topic Meningococcal Immunization (ACWY) Aged Out No longer eligible b ased on patient's age to complete this topic Rotavirus Immunization Aged Out No lo nger eligible based on patient's age to complete this topic Insurance MEDICAID [employer] Care Teams Installation Coordinator Relationship Specialty Start Date End Date Nina Dominguez MD [address] [place] [id number] PCP - General Family Medicine 07/01/23 Jeremiah Hoffman, DIRECTOR FRAUD, [employer] AR[employer] [address] [place] [address] Nurse Practitioner Advanced Practice Nurse 07/01/23
--- OUTSIDE RECORDS SUMMARY | 2025-03-26 14:32 | XMS_ITS | Continuity of Care Document ---
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 None Recorded Concern Status LastModified by Organization Details LastModified Time None Recorded Payers Encounter Date Sequence Insurance Name Policy Number Policy Love Covered Member ID Love Member ID Guarantor Name 03/03/[address] [facility] - DOS ON OR AFTER 20 (MEDICAID REPLACEMENT - HMO) Elizabeth Amezcua [id number] Elizabeth Amezcua Notes Date Note Type Note Provider Name and Address Organization Details Recorded Time 03/03/2025 text/html Annual GYNReported by Patient Presents today for her annual well-woman exam. Denies abnormal vaginal discharge. She is not sexually active. She has not noticed any changes or masses in her breasts. Up to date on mammograms. Menopausal, no PMB. No hx of abnormal pap smears. Stopped Veozah due to interaction with other medication. Having increased sweating but seeing Rheum and was told it could be medication side effect. INGRID ALAMO MD [address], [place], [address], [facility] 03/03/2025 13:00:57 OBGyn Episode No OBEpisode recorded.
--- OUTSIDE RECORDS SUMMARY | 2025-03-26 14:32 | XMS_ITS | Encounter Summary ---
Author Organization [facility] Address [address] [place] [address] Phone Care Team Providers Care Manager Women Name Role Phone Nina Dominguez MD Primary Care Provider + Jeremiah Hoffman APRN, MEASUREMENT PSYCHOLOGIST Unavailable [phone] Reason for Visit * Reason Comments Medication Refill Encounter Details Date Type Department Care Team (Late st Contact Info) Description 12/27/2023 Refill [facility] [address] [place] [address] Jeremiah Hoffman, NUTRITION WORKER, MEASUREMENT PSYCHOLOGIST [address] [place] [address] Medication Refill Social History Tobacco Use Types Packs/Day Years Used Date Smoking Tobacco: Never Smokeless Tobacco: Never Alcohol Use Standard Drinks/Week Comments Never 0 (1 standard drink = 0.6 oz pur e alcohol) Comments No Sex and Gender Information Value Date Recorded Sex Assigned at Not on file Legal Sex Female 3:51 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
--- OUTSIDE RECORDS SUMMARY | 2025-03-26 14:32 | XMS_ITS | Encounter Summary ---
Author Organization [facility] Address [address] [place] [address] Phone Care Team Providers Care Energy Efficiency Specialist Name Role Phone Nina Dominguez MD Primary Care Provider + Jeremiah Hoffman APRN, BULL RIDER Unavailable Reason for Visit * Reason Comments Medication Refill Encounter Details Date Type Department Care Team (Late st Contact Info) Description 10/10/2023 Refill [facility] [address] [place] [address] Jeremiah Hoffman APRN, BULL RIDER [address] [place] [address] Medication Refill Social History Tobacco Use Types Packs/Day Years Used Date Smoking Tobacco: Never Smokeless Tobacco: Never Alcohol Use Standard Drinks/Week Comments Never 0 (1 standard drink = 0.6 oz pur e alcohol) Comments No Sex and Gender Information Value Date Recorded Sex Assigned at Not on file 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
--- OUTSIDE RECORDS SUMMARY | 2025-03-26 14:32 | XMS_ITS | Encounter Summary ---
Author Organization [facility] Address [address] [place] [address] Phone Care Team Providers Care Sleeve Setter Lockstitch Name Role Phone Nina Dominguez MD Primary Care Provider + Jeremiah Hoffman APRN, INSTRUCTIONAL TECHNOLOGY INSTRUCTOR Unavailable Reason for Visit * Reason Comments Medication Refill Encounter Details Date Type Department Care Team (Late st Contact Info) Description 12/02/2023 Refill [facility] [address] [place] [address] Jeremiah Hoffman, FBI SPECIAL AGENT, INSTRUCTIONAL TECHNOLOGY INSTRUCTOR [address] [place] [address] Medication Refill Social History Tobacco Use Types Packs/Day Years Used Date Smoking Tobacco: Never Smokeless Tobacco: Never Alcohol Use Standard Drinks/Week Comments Never 0 (1 standard drink = 0.6 oz pur e alcohol) Comments No Sex and Gender Information Value Date Recorded Sex Assigned at Not on file 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 Gender Identity Not on file Sexual Orientation Not on file documented as of this encounter Plan of Treatment Not on file documented as of this encounter Visit Diagnoses Diagnosis OAB (overactive bladder) Hypertonicity of bladder documented in this encounter Care Teams Sleeve Setter Lockstitch Relationship Specialty Start Date End Date Nina Dominguez MD [address] [place] [id number] PCP - General Family Medicine 07/01/23 Jeremiah Hoffman APRN, INSTRUCTIONAL TECHNOLOGY INSTRUCTOR [address] [place] [address] Nurse Practitioner Advanced Practice Nurse 07/01/23 documented as of this encounter
--- OUTSIDE RECORDS SUMMARY | 2025-03-26 14:32 | XMS_ITS | Encounter Summary ---
Author Organization [facility] Address [address] [place] [address] Care Team Providers Care Agriculture Specialist Name Role Phone Triston Emilee MONTALVO Unavailable [phone] Unknown, Notinfile Primary Care Provider Unavail able Jay Lee MD Primary Care Provider [phone] Reason for Visit * Reason Onset Date Comments order and notes 02/07/2024 Encounter Details Date Type Department Care Team (Late st Contact Info) Description 02/07/[address] [facility] [address] [facility] [address] [place] [address] Katty Felix MD PhD [address] [place], [place] [id number] order and notes Social History Tobacco Use Types Packs/Day Years Used Date Smoking Tobacco: Never Smokeless Tobacco: Never [facility] Utilities Answer Date Recorded In the past 12 months has [employer] electric, gas, oil, or water company threatened [...] declined 03/29/2023 How often do you attend sikh or anabaptism serv ices? Patient declined 03/29/2023 Do you belong to any clubs o r organizations such as sikh groups, unions, fraternal or athletic groups, or school groups? Patient declined 03/29/2023 How often do you attend meet ings of the clubs or organizations you belong to? Patient declined 03/29/2023 Are you , , di vorced, , never , or living with a partner? 03/29/2023 AUDIT-C Answer Date Recorded Q1: How often do you have a drink containing alcohol? Never 02/07/2024 Q2: How many drinks containi ng alcohol do you have on a typical day when you are drinking? Patient does not drink Q3: How often do you have si x or more drinks on one occasion? Never 02/07/2024 Overall Financial Resource Strain (CARDIA) Answe r Date Recorded How hard is it for you to pa y for the very basics like food, housing, medical care, and heating? Hard 03/29/2023 Hunger Vital Sign Answer Date Recorded Within the past 12 months, y ou worried that your food would run out before you got the money to buy more. Never true 02/07/20 24 Within the past 12 months, t he food you bought just didn't last and you didn't have money to get more. Never true 02/07/2024 PRAPARE - Transportation Answer Date Re corded [...] place to sleep or slept in a intermediate (including now)? No 03/29/2023 Personal Safety Answer Date Recorded Have you ever been in or are you currently in a harmful physical or emotional relationship or is someone making you feel afraid or unsafe? Denies 2023 Comments No Sex and Gender Information Value Date Recorded Sex Assigned at Not on file Legal Sex Female 12:21 AM PAYROLL AND BENEFITS SPECIALIST Gender Identity Female 03/20/2023 8:17 AM PAYROLL AND BENEFITS SPECIALIST Sexual Orientation Straight 03/20/2023 8: 17 AM PAYROLL AND BENEFITS SPECIALIST documented as of this encounter Functional Status * AUDIT-C Score Answer Date of Assessment Author 0 02/07/2024 1:55 PM CDT Ana Shah RN * Alcohol Use Question Answer Date of Assessment Author Q1: How often do you have a drink containing alcohol? Never 02/07/2024 1:55 PM CDT Mago Shah RN Q2: How many drinks containing alcohol do you have on a typical day when you are drinking? Patient does not drink 02/07/2024 1:55 PM CDT Mago Shah RN Q3: How often do you have six or more drinks on one occasion? Never 02/07/2024 1:55 PM CDT Mago Shah RN documented as of this encounter Plan of Treatment Not on file documented as of this encounter Goals Goal Patient Goal Type Associated Problems Recent Progress Patient-Stated? Author CCM Chronic Pain Care Plan Chronic Care Management Worsening( 2:48 PM CDT) Nithya Blancas, RAE Note: Problem: Chronic Pain Goals: 1. Minimize [...] documented as of this encounter Care Teams Agriculture Specialist Relationship Specialty Start Date End Date Unknown, Notinfile PCP - General 02/07/24 02/19/24 Jay Lee MD [address] [facility] [place] [address] PCP - General Family Medicine 02/20/24 Emilee Goldstein PA [address] [address] 03/18/23 documented as of this encounter
--- OUTSIDE RECORDS SUMMARY | 2025-03-26 14:32 | XMS_ITS | Encounter Summary ---
Author Organization [facility] Address [address] [place] [address] Phone Care Team Providers Care Jackaroo Name Role Phone Nina Dominguez MD Primary Care Provider + Jeremiah Hoffman APRN, SPORTS ATTORNEY Unavailable [phone] Reason for Visit * Reason Comments Medication Refill Encounter Details Date Type Department Care Team (Late st Contact Info) Description 10/21/2023 Refill [facility] [address] [place] [address] Jeremiah Hoffman, WIND TECHNICIAN, SPORTS ATTORNEY [address] [place] [address] Medication Refill Social History Tobacco Use Types Packs/Day Years Used Date Smoking Tobacco: Never Smokeless Tobacco: Never Alcohol Use Standard Drinks/Week Comments Never 0 (1 standard drink = 0.6 oz pur e alcohol) Comments No Sex and Gender Information Value Date Recorded Sex Assigned at Not on file 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 Requested Prescriptions Pending Prescriptions Disp Refills Gemtesa 75 MG Tablet [Pharmacy Med Name: GEMTESA 75mg TAB] 30 Tablet 0 Sig: TAKE 1 TABLET BY MOUTH DAILY Urinary Beta-3 Adrenergic Agonist Protocol Failed - 10/21/2023 10:26 AM Failed - GFR greater than or equal to 30 in past 12 months No results found for: GFRNA Failed - No conflicting beta blockers on med list Passed - Blood pressure on record in past 12 months Passed - Visit with relevant provider in past 12 months or upcoming 90 days Recent Visits Date Type Provider Dept 08/19/23 Office Visit Jeremiah Hoffman APRN, CNP [facility] 07/01/23 Office Visit Jeremiah Hoffman APRN, CNP [facility] [place] Showing recent visits within past 365 days and meeting all other requirements Future Appointments No visits were found meeting these conditions. Showing future appointments within next 90 days and meeting all other requirements documented in this encounter Plan of Treatment Not on file documented as of this encounter Visit Diagnoses Diagnosis OAB (overactive bladder)- Primary Hypertonicity of bladder documented in this encounter Care Teams Jackaroo Relationship Specialty Start Date End Date Nina Dominguez MD [address] [place] [address] PCP - General Family Medicine 07/01/23 Jeremiah Hoffman APRN, CNP [address] [place] [address] Nurse Practitioner Advanced Practice Nurse 07/01/23 documented as of this encounter
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
--- OUTSIDE RECORDS SUMMARY | 2025-03-26 14:32 | XMS_ITS | Encounter Summary ---
Author Organization [facility] Address [address] [place] [address] Phone Care Team Providers Care Bumboater Name Role Phone Monica Grijalva MD Primary Care Provider + Monica Grijalva MD Primary Care Provider + Monica Grijalva MD Primary Care Provider + Nevaeh Bradford MD Primary Care Provider iNna Dominguez MD Primary Care Provider + Emilee Goldstein Primary Care Provider [phone] Nina Dominguez MD Primary Care Provider + Emilee Goldstein Unavailable [phone] Kendra Kumar RN Unavailable [phone] Unknown, Notinfile Primary Care Provider Unavail able Jay Lee MD Primary Care Provider [phone] Encounter Details Date Type Department Care Team (Latest Contact Info) Description 12/23/2019 Orders Only [facility] Scanning, Provider Social History Tobacco Use Types Packs/Day Years Used Date Smoking Tobacco: Never Comments Unknown Sex and Gender Information Value Date Recorded Sex Assigned at Not on file Legal Sex Female 12:21 AM 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 Gender Identity Female 03/20/2023 8:17 AM 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 Sexual Orientation Straight 03/20/2023 8: 17 AM 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 documented as of this encounter Plan of Treatment Not on file documented as of this encounter Procedures Procedure Name Priority Date/Time Associated Diagnosis Comments SCAN - LABS 12/23/2019 documented in this encounter Results * SCAN - LABS (12/23/2019) us Provider Scanning Final Result documented in this encounter Visit Diagnoses Not on filedocumented in this encounter Additional Health Concerns Infection Onset Date Last Indicated Resolved Time COVID: Suspected 03/19/2023 03/19/2023 03/20/2023 12:21 AM 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 COVID: Suspected 08/16/2024 08/16/2024 08/16/2024 3:03 AM CDT COVID: Suspected 11/24/2024 11/24/2024 11/24/2024 1:16 PM CDT COVID19 11/24/2024 11/24/2024 12/06/2024 7:26 PM CDT COVID: Recovered Comment:Added based on recent COVID infection. 12/06/2024 12/09/2024 03/06/2025 7:27 PM C DT documented as of this encounter Care Teams Bumboater Relationship Specialty Start Date End Date Monica Grijalva MD PCP - General Internal Medicine 05/30/20 07/19/20 Monica Grijalva MD PCP - General 07/20/20 07/20/20 Monica Grijalva MD PCP - General 07/21/20 07/30/20 Nevaeh Bradford MD [address] [place] [address] PCP - General Family Practice 08/04/20 03/26/21 Nina Dominguez MD [address] [place] [address] PCP - General Family Medicine 03/27/21 09/24/22 Emilee Goldstein PA [address] [place] [address] PCP - General 09/25/22 03/17/23 Nina Dominguez MD [address] [place] [address] PCP - General Family Medicine 03/18/23 02/06/24 Unknown, Notinfile PCP - General 02/07/24 02/19/24 Jay Lee MD [address] [place] [address] [place] [address] PCP - General Family Medicine 02/20/24 Emilee Goldstein PA [address] [place] [address] 03/18/23 Kendra Kumar, RN [address] [facility] [address] [place] [address] [id number] [facility]patient 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
--- OUTSIDE RECORDS SUMMARY | 2025-03-26 14:32 | XMS_ITS | Encounter Summary ---
Author Organization [facility] Healthcare Address [address] [place] [address] Care Team Providers Care Pneumatic Tube Repairer Name Role Phone Nina Dominguez MD Primary Care Provider + Emilee Goldstein Unavailable [phone] Unknown, Notinfile Primary Care Provider Unavail able Jay Lee MD Primary Care Provider [phone] Encounter Details Date Type Department Care Team (Late st Contact Info) Description 11/27/2023 Documentation [facility] OP Occup Therapy [facility] [address] [address] Khan, Carmelita, OT Social History Tobacco Use Types Packs/Day Years Used Date Smoking Tobacco: Never Smokeless Tobacco: Never [facility] Utilities Answer Date Recorded In the past 12 months has [employer], gas, oil, or water [employer] threatened to shut off services in your home? No 03/29/2023 Social Connection and Isolation Panel Answer Date Recorded In a typical week, how many times do you talk on the phone with family, friends, or neighbors? Patient declined 03/29/2023 How often do you get togethe r with friends or relatives? Patient declined 03/29/2023 How often do you attend tenriism or jain serv ices? Patient declined 03/29/2023 Do you belong to any clubs o r organizations such as tenriism groups, unions, fraternal or athletic groups, or school groups? Patient declined 03/29/2023 How often do you attend meet ings of the clubs or organizations you belong to? Patient declined 03/29/2023 Are you , , di vorced, , never , or living with a partner? 03/29/2023 AUDIT-C Answer Date Recorded Q1: How often do you have a drink containing alcohol? Never 08/07/2023 Q2: How many drinks containi ng alcohol do you have on a typical day when you are drinking? Patient does not drink Q3: How often do you have si x or more drinks on one occasion? Never 08/07/2023 Overall Financial Resource Strain (CARDIA) Answe r Date Recorded How hard is it for you to pa y for the very basics like food, housing, medical care, and heating? Hard 03/29/2023 Hunger Vital Sign Answer Date Recorded Within the past 12 months, y ou worried that your food would run out before you got the money to buy more. Never true 08/07/19 24 Within the past 12 months, t he food you bought just didn't last and you didn't have money to get more. Never true 08/07/2023 PRAPARE - Transportation Answer Date Re corded [...] in a retirement (including now)? No 03/29/2023 Personal Safety Answer Date Recorded Have you ever been in or are you currently in a harmful physical or emotional relationship or is someone making you feel afraid or unsafe? Denies 2023 Comments No Sex and Gender Information Value Date Recorded Sex Assigned at Not on file Legal Sex Female 12:21 AM RN EXAMINER Gender Identity Female 03/20/2023 8:17 AM RN EXAMINER Sexual Orientation Straight 03/20/2023 8: 17 AM RN EXAMINER documented as of this encounter Plan of Treatment Not on file documented as of this encounter Goals Goal Patient Goal Type Associated Problems Recent Progress Patient-Stated? Author CCM Chronic Pain Care Plan Chronic Care Management Worsening( 2:48 PM CDT) Nithya Blancas RN Note: Problem: Chronic Pain Goals: 1. [...] documented as of this encounter Care Teams Pneumatic Tube Repairer Relationship Specialty Start Date End Date Nina Dominguez MD [address] [place] [address] PCP - General Family Medicine 03/18/23 02/06/24 Unknown, Notinfile PCP - General 02/07/24 02/19/24 Jay Lee MD [address] [place] [address] [place] [address] PCP - General Family Medicine 02/20/24 Emilee Goldstein PA [address] [place] [address] 03/18/23 documented as of this encounter
== END 2025-03-26 14:29 | disposition home or self-care (01) ==
LOC: ANHFOHIMG 14:29
PROVIDERS: PCP Family Medicine; Visit Provider Obstetrics & Gynecology
DX: Z12.31 Encounter for screening mammogram for malignant neoplasm of breast (principal); R92.8 Other abnormal and inconclusive findings on diagnostic imaging of breast
CPT/HCPCS: 77063; 77067

== ENCOUNTER 2025-04-09 10:46 | Outpatient (CLI) | payer OTHER, SELFPAY ==
--- NOTE | ~2025-04-09 | MMUS_ITS ---
EXAMINATION: MM diagnostic jairon RT w jocelyne, US breast RT limited HISTORY: Additional imaging TECHNIQUE: Craniocaudal and mediolateral oblique 3-D tomosynthesis images were obtained and synthetic 2-D images were generated. CAD analysis was submitted and interpreted. Grayscale sonography over the area(s) of interest with color Doppler if there is a finding. COMPARISON: March 26 BREAST PARENCHYMAL COMPOSITION: Not Dense: There are scattered areas of fibroglandular MAMMOGRAM FINDINGS: There is a macrolobulated mass with a circumscribed margin versus a group of adjacent, small, circumscribed masses. There are no suspicious calcifications. No unexplained architectural distortion is seen. There are no skin or nipple abnormalities identified. There is no adenopathy seen on the images submitted. ULTRASOUND FINDINGS: Sonography through the 10:00 retroareolar region demonstrates a group of small cysts versus a multiseptated cyst with a maximum (conglomerate) measurements of 13 mm. This accounts for the mammographic appearance. IMPRESSION: Benign findings as described. No mammographic evidence to suggest malignancy is seen. The patient may return to screening mammography as per ACR guidelines. BI-RADS 2 - Benign. Reviewed, dictated and finalized at location B. BRANDER IMPRESSION: Benign findings as described. No mammographic evidence to suggest malignancy is seen. The patient may return to screening mammography as per ACR guidelines. BI-RADS 2 - Benign.
== END 2025-04-09 10:47 | disposition home or self-care (01) ==
LOC: ANHFOHIMG 10:48
PROVIDERS: PCP Family Medicine; Visit Provider Obstetrics & Gynecology
DX: R92.8 Other abnormal and inconclusive findings on diagnostic imaging of breast (principal)
CPT/HCPCS: 76642; 77061; 77065; G0279